=== PATIENT | female | born 1995 | race African-American/Black ===

== ENCOUNTER 2018-03-26 22:25 | Emergency (ER) | payer SELFPAY ==
[2018-03-26] MEDS ORDERED: PHENAZOPYRIDINE HCL 200 MG TABLET PO ONE (23:12)
[2018-03-26] MEDS ORDERED: HYDROCODONE/ACETAMINOPHEN 5-325 MG TABLET PO ONE (23:12)
--- NOTE | 2018-03-26 23:17 | ER Document Report ---
ED General - General Chief Complaint: Low Back Pain Stated Complaint: VOMITING/FEVER Time Seen by Provider: 03/26/18 23:02 Mode of Arrival: Ambulatory Information source: Patient Notes: 22-year-old female present presents with complaints of dysuria, low back pain and chills. Patient reports that approximately 2-3 weeks ago she was treated for trichomonas, gonorrhea, chlamydia and yeast infection at the [facility]. Patient reports that the symptoms started approximately 2 days after her treatment for the last 2 days. Patient reports that she was seen for this at the [facility] approximately 1 week ago and was started on Macrobid 100 mg p.o. twice daily however patient states that she could not afford to get the prescription filled until earlier today. Patient reports that she has taken 1 dose of the medication however patient thought that she should come and get her urine rechecked before continuing taking the medication. Patient reports no significant past medical history other than the sexually transmitted infections. Patient reports past surgical history of C- section 2. Patient denies any kidney infections or kidney stones. TRAVEL OUTSIDE OF THE [place] IN LAST 30 DAYS: No - Related Data Allergies/Adverse Reactions: No Known Allergies Allergy (Unverified 12/17/13 23:19) Past Medical History - General Information source: Patient - Social History Smoking Status: Never Smoker Frequency of alcohol use: None Drug Abuse: None Family History: Reviewed & Not Pertinent - Medical History Medical History: Negative Past Surgical History: Reports: Hx Section - x2 - Immunizations Immunizations up to date: Yes Hx Diphtheria, Pertussis, Tetanus Vaccination: Yes - 09/27/13 Review of Systems - Review of Systems Constitutional: Chills EENT: No symptoms reported Cardiovascular: No symptoms reported Respiratory: No symptoms reported Gastrointestinal: No symptoms reported Genitourinary: Burning, Dysuria Female Genitourinary: No symptoms reported Musculoskeletal: Back pain Skin: No symptoms reported Hematologic/Lymphatic: No symptoms reported Neurological/Psychological: No symptoms reported Physical Exam - Vital signs Vitals: Temp Pulse Resp BP Pulse Ox 99.0 F 92 18 123/65 97 03/26/18 22:36 03/26/18 22:36 03/26/18 22:36 03/26/18 22:36 03/26/18 22:36 - Notes Notes: PHYSICAL EXAMINATION: GENERAL: Well-appearing, well-nourished and in no acute distress. HEAD: Atraumatic, normocephalic. EYES: Pupils equal round and reactive to light, extraocular movements intact, conjunctiva are normal. ENT: Nares patent, oropharynx clear without exudates. Moist mucous membranes. NECK: Normal range of motion, supple without lymphadenopathy LUNGS: Breath sounds clear to auscultation bilaterally and equal. No wheezes rales or rhonchi. HEART: Regular rate and rhythm without murmurs ABDOMEN: Soft, nontender, nondistended abdomen. No guarding, no rebound. No masses appreciated. Female : No CVA tenderness. Musculoskeletal: Normal range of motion, no pitting or edema. No cyanosis. Low back pain on palpation. NEUROLOGICAL: Cranial nerves grossly intact. Normal speech, normal gait. Normal sensory, motor exams PSYCH: Normal mood, normal affect. SKIN: Warm, Dry, normal turgor, no rashes or lesions noted. Course - Re-evaluation Re-evalutation: Otherwise healthy appearing 22-year-old female presenting with complaints of dysuria, low back pain and chills. Patient does report that she was diagnosed with a urinary tract infection approximately 1 week ago however she did not get her prescription filled until today. Patient has no CVA tenderness, vital signs are stable and patient does not appear to be toxic. No history of kidney stones. Will recheck patient's urine and treat for pain with plan to discharge home on antibiotics. Urinalysis is negative for nitrites however reveals large leukocytes and greater than 182 white blood cells. Will treat patient with IM Rocephin while here in the emergency department and will have patient continue her Macrobid that was previously prescribed. Patient was also be given Pyridium. Patient will be following up with the health department and [place] for a follow-up next week. Patient understands ED return precautions. - Vital Signs Vital signs: Temp Pulse Resp BP Pulse Ox 98.6 F 83 16 106/64 97 03/27/18 00:33 03/27/18 00:33 03/27/18 00:33 03/27/18 00:33 03/27/18 00:33 - Laboratory Laboratory results interpreted by me: 03/26/18 23:21 Urine Protein 100 H Urine Ketones 20 H Urine Blood LARGE H Ur Leukocyte Esterase LARGE H Discharge - Discharge Clinical Impression: Urinary tract infection Condition: Stable Disposition: HOME, SELF-CARE Additional Instructions: Urinary Tract Infection Your evaluation indicates that you have a urinary tract infection. This is due to germs growing in the bladder. This is a common problem. This infection usually responds quickly to antibiotics. Your antibiotic should be taken exactly as prescribed. Drink plenty of fluids -- three to four quarts a day. Occasionally, a bladder anesthetic will be prescribed to help stop the feeling of urgency until the antibiotic has a chance to clear the infection. This may cause your urine to be dark orange. Certain urine infections require a culture. If the doctor obtained a culture, the results will be back in two days. You should call to see if a change in treatment is needed. A repeat urinalysis after you finish treatment is often recommended. The physician will let you know if further testing is required. Call the doctor if you develop fever, chills, flank pain, inability to urinate, or blood in the urine. Please take the antibiotic, Macrobid, that the health department prescribed to you. You have also been given a dose of Rocephin in the emergency department. The Pyridium that I gave you in the emergency your urine orange, do not be alarmed if this happens. Please finish all of the antibiotics regardless if your symptoms resolve or not. Please go to the health department and in the next 7-10 days to have the urine rechecked. Please return to the emergency department if you develop worsening pain, pain in your kidney area, fevers, vomiting or any other symptom that is concerning to you. Prescriptions: Phenazopyridine HCl [Pyridium 100 Mg Tablet] 100 mg PO Q6 PRN #6 tablet PRN Reason: For Pain Referrals: STACEY THOMAS MD [ACTIVE STAFF] - Follow up as needed
[2018-03-26 23:37] LABS: APPEARANCE,URINE CLOUDY; BILIRUBIN,URINE NEGATIVE (NEGATIVE); COLOR,URINE YELLOW; GLUCOSE, URINE NEGATIVE (NEGATIVE); KETONES,URINE 20 mg/dL (NEGATIVE); LEUKOCYTE ESTERASE,URINE LARGE (NEGATIVE); NITRITE,URINE NEGATIVE (NEGATIVE); PROTEIN,URINE 100 mg/dL (NEGATIVE); URINE SPECIFIC GRAVITY 1.014; UROBILINOGEN,URINE NEGATIVE mg/dL (<2.0)
[2018-03-26] MEDS ORDERED: CEFTRIAXONE INJ 1000 MG VIAL IM ONE (23:50)
[2018-03-26] MEDS ORDERED: HYDROCODONE/ACETAMINOPHEN 5-325 MG (6 TAB/ER DISP) PO PRN (23:50)
[2018-03-26] MEDS ORDERED: LIDOCAINE 1% INJ-PF (10 MG/ML) 30 ML SDV INJ ONE (23:50)
[2018-03-27 00:56] VITALS: BP 106/64
== END 2018-03-27 00:35 | disposition home or self-care (01) ==
LOC: ER 22:25
DX: N39.0 Urinary tract infection, site not specified (principal); M54.5 Low back pain; R11.10 Vomiting, unspecified; R50.9 Fever, unspecified
CPT/HCPCS: 99283; 96372; 87086; 81001; J3490 ×2; J0696

== ENCOUNTER 2018-09-09 13:31 | Emergency (ER) | payer MEDICAID ==
[2018-09-09 13:38] VITALS: BP 122/62
--- NOTE | 2018-09-09 14:06 | ER Document Report ---
ED GI/ - General Chief Complaint: Vag Bleeding, +preg <12wks Stated Complaint: VAGINAL BLEEDING Time Seen by Provider: 09/09/18 14:00 Mode of Arrival: Ambulatory Information source: Patient Notes: Chief complaint: Vaginal bleeding History of complain:( obtained from----patient) 23 years old female , 6 weeks presents today with vaginal bleeding on and off since this morning. Denies any abdominal pain or cramps. Denies any weakness. Denies any constitutional symptoms. Onset: This morning Duration: Few hours Severity: Mild to moderate Quality: Vaginal bleeding Context: Exacerbating factor and relieving factors: Not applicable REVIEW OF SYSTEMS: CONSTITUTIONAL : Denies fever, chills, or sweats. Denies recent illness. EENT: Denies eye, ear, throat, or mouth pain or symptoms. Denies nasal or sinus congestion or discharge. Denies throat, tongue, or mouth swelling or difficulty swallowing. CARDIOVASCULAR: Denies chest pain. Denies palpitations or racing or irregular heart beat. Denies ankle edema. RESPIRATORY: Denies cough, cold, or chest congestion. Denies shortness of breath, difficulty breathing, or wheezing. GASTROINTESTINAL: Denies distention. Denies nausea, vomiting, or diarrhea. Denies blood in vomitus, stools, or per rectum. Denies black, tarry stools. Denies constipation. GENITOURINARY: Denies difficulty urinating, painful urination, burning, frequency, blood in urine, or discharge. FEMALE GENITOURINARY: Denies vaginal bleeding, heavy or abnormal periods, irregular periods. Denies vaginal discharge or odor. MUSCULOSKELETAL: Denies back or neck pain or stiffness. Denies joint pain or swelling. SKIN: Denies rash, lesions or sores. HEMATOLOGIC : Denies easy bruising or bleeding. LYMPHATIC: Denies swollen, enlarged glands. NEUROLOGICAL: Denies confusion or altered mental status. Denies passing out or loss of consciousness. Denies dizziness or lightheadedness. Denies headache. Denies weakness or paralysis or loss of use of either side. Denies problems with gait or speech. Denies sensory loss, numbness, or tingling. Denies seizures. PSYCHIATRIC: Denies anxiety or stress. Denies depression, suicidal ideation, or homicidal ideation. ALL OTHER SYSTEMS REVIEWED AND NEGATIVE. PHYSICAL EXAMINATION: GENERAL: Well-appearing, well-nourished and in no acute distress. HEAD: Atraumatic, normocephalic. EYES: Pupils equal round and reactive to light, extraocular movements intact, conjunctiva are normal. ENT: Nares patent, oropharynx clear without exudates. Moist mucous membranes. NECK: Normal range of motion, supple without lymphadenopathy LUNGS: Breath sounds clear to auscultation bilaterally and equal. No wheezes rales or rhonchi. HEART: Regular rate and rhythm without murmurs ABDOMEN: Soft, nontender, nondistended abdomen. No guarding, no rebound. No masses appreciated. Examination of genitals-deferred Musculoskeletal: Normal range of motion, no pitting or edema. No cyanosis. NEUROLOGICAL: Cranial nerves grossly intact. Normal speech, normal gait. Normal sensory, motor exams PSYCH: Normal mood, normal affect. SKIN: Warm, Dry, normal turgor, no rashes or lesions noted. Dictation was performed using [employer] voice recognition software TRAVEL OUTSIDE OF THE [place] IN LAST 30 DAYS: No - HPI Notes: 09/10/18 09:14 Dictated - Related Data Allergies/Adverse Reactions: No Known Allergies Allergy (Verified 09/09/18 13:32) Past Medical History - General Last Menstrual Period: 07/29/2018 - Social History Smoking Status: Current Every Day Smoker Chew tobacco use (# tins/day): No Frequency of alcohol use: None Drug Abuse: None Lives with: Family Family History: Reviewed & Not Pertinent Patient has suicidal ideation: No Patient has homicidal ideation: No Renal/ Medical History: Denies: Hx Peritoneal Dialysis Past Surgical History: Reports: Hx Section - x2 - Immunizations Immunizations up to date: Yes Hx Diphtheria, Pertussis, Tetanus Vaccination: Yes - 09/27/13 Review of Systems - Review of Systems Notes: Dictated Physical Exam - Vital signs Vitals: Temp Pulse Resp BP Pulse Ox 98.1 F 82 14 122/62 100 09/09/18 13:36 09/09/18 13:36 09/09/18 13:36 09/09/18 13:36 09/09/18 13:36 - Notes Notes: Dictated Course - Vital Signs Vital signs: Temp Pulse Resp BP Pulse Ox 98.1 F 82 14 122/62 100 09/09/18 13:36 09/09/18 13:36 09/09/18 13:36 09/09/18 13:36 09/09/18 13:36 - Laboratory Result Diagrams: 09/09/18 14:32 Laboratory results interpreted by me: 09/09/18 14:32 Beta HCG, Quant 983.75 H - Diagnostic Test Radiology reviewed: Reports reviewed - Ultrasound of the pelvis was done which indicates 6 weeks intrauterine sac, could not identify pole. Discharge - Discharge Clinical Impression: Threatened in first trimester Condition: Fair Disposition: HOME, SELF-CARE Instructions: Threatened Miscarriage ([facility])
[2018-09-09 14:51] LABS: ABSOLUTE EOSINOPHILS # (AUTO) 0.1 10^3/uL (0.0-0.6); ABSOLUTE LYMPHOCYTES (AUTO) 2.6 10^3/uL (0.5-4.7); ABSOLUTE MONOCYTES (AUTO) 0.5 10^3/uL (0.1-1.4); ABSOLUTE NEUT (AUTO) 5.1 10^3/uL (1.7-8.2); BASOPHILS % (AUTO) 0.3 % (0-2); EOSINOPHILS % (AUTO) 1.2 % (0-6); LYMPHOCYTES % (AUTO) 31.4 % (13-45); MEAN CORPUSCULAR HEMOGLOBIN 31.5 pg (27.0-33.4); MEAN CORPUSCULAR HGB CONC 34.3 g/dL (32.0-36.0); MEAN CORPUSCULAR VOLUME 92 fl (80-97); MONOCYTES % (AUTO) 5.6 % (3-13); PLATELET COUNT 257 10^3/uL (150-450); RED BLOOD COUNT 4.14 10^6/uL (3.72-5.28); RED CELL DISTRIBUTION WIDTH 12.9 % (11.5-14.0); SEGMENTED NEUTROPHILS % (AUTO) 61.5 % (42-78); TOTAL CELLS COUNTED % (AUTO) 100 %; WHITE BLOOD COUNT 8.3 10^3/uL (4.0-10.5)
--- NOTE | 2018-09-09 16:26 | RADIOLOGY REPORT (SQ) ---
EXAM DESCRIPTION: U/S 1TRIMESTER/1GEST W/DOPPLER COMPLETED DATE/TIME: 09/09/2018 4:04 pm REASON FOR STUDY: COMPARISON: None. TECHNIQUE: Transvaginal static and realtime grayscale images acquired of the pelvis. Additional geovanni cted spectral and color Doppler images recorded. All images stored on PACs. bHCG: Not available. CLINICAL DATES: LMP 07/29/2018. 6 weeks 0 days. LIMITATIONS: None. FINDINGS: FETUS: Single Living intrauterine . ULTRASOUND EGA: 5 weeks 2 days by gestational sac size. The gestational sac is rounded and there is some fluid within it. ULTRASOUND JUAN: 05/10/2019 EFW: Not applicable less than 20 weeks. CRL: Not seen. FHR: Not seen. Beats per minute. SURVEY: Too early to assess. AMNIOTIC FLUID: Adequate amount. PLACENTA: Not yet developed due to early gestation. SUBCHORIONIC BLEED: No SIZE OF BLEED: Not applicable. UTERUS: No masses. No anomalies. CERVICAL LENGTH: Not applicable. Greater than 20 weeks. Need transvaginal study if indicated. Close d. RIGHT ADNEXA: Normal ovary with normal vascular flow. 2.5 x 3.3 x 1.6 cm. No adnexal free fluid. No adnexal masses. LEFT ADNEXA: Normal ovary with normal vascular flow. 2.9 x 1.6 x 1.8 cm. No adnexal free fluid. No adnexal masses. FREE FLUID: None. OTHER: No other significant finding. IMPRESSION: There appears to be an intrauterine gestational sac measuring 6 mm suggesting an gestati on of 5 weeks 2 days. A pole is not seen. Of course no heart motion is seen. Follow-up as clinically indicated. Trimester of : First - 0 to 13 weeks. TECHNICAL DOCUMENTATION: JOB ID: [id number] [employer]- All Rights Reserved rev-02/27 Reading location - IP/workstation name: [email or web address]
== END 2018-09-09 16:43 | disposition home or self-care (01) ==
LOC: ER 13:31
DX: O20.0 Threatened abortion (principal); O99.331 Smoking (tobacco) complicating pregnancy, first trimester; Z3A.01 Less than 8 weeks gestation of pregnancy
CPT/HCPCS: 36415; 76801; 84702; 85025; 93976; 99284

== ENCOUNTER 2018-09-11 15:00 | Emergency (ER) | payer MEDICAID ==
--- NOTE | 2018-09-11 16:30 | ER Document Report ---
ED GI/ - General Chief Complaint: Vag Bleeding, +preg <12wks Stated Complaint: VAGINAL BLEEDING Time Seen by Provider: 09/11/18 16:27 Mode of Arrival: Ambulatory Information source: Patient Notes: Chief complaint: Vaginal bleeding History of complain:( obtained from----patient) 23 years old female presents today with vaginal bleeding. She was seen here 2 days ago and had a ultrasound done. Showed 5 weeks and 2 days intrauterine gestation. But she is continuously bleeding therefore present today via taxi. Onset: As above Duration: As above Severity: Mild to moderate Quality: Mild Context: Exacerbating factor and relieving factors: REVIEW OF SYSTEMS: CONSTITUTIONAL : Denies fever, chills, or sweats. Denies recent illness. EENT: Denies eye, ear, throat, or mouth pain or symptoms. Denies nasal or sinus congestion or discharge. Denies throat, tongue, or mouth swelling or difficulty swallowing. CARDIOVASCULAR: Denies chest pain. Denies palpitations or racing or irregular heart beat. Denies ankle edema. RESPIRATORY: Denies cough, cold, or chest congestion. Denies shortness of breath, difficulty breathing, or wheezing. GASTROINTESTINAL: Denies distention. Denies nausea, vomiting, or diarrhea. Denies blood in vomitus, stools, or per rectum. Denies black, tarry stools. Denies constipation. GENITOURINARY: Denies difficulty urinating, painful urination, burning, frequency, blood in urine, or discharge. FEMALE GENITOURINARY: Denies vaginal bleeding, heavy or abnormal periods, irregular periods. Denies vaginal discharge or odor. MUSCULOSKELETAL: Denies back or neck pain or stiffness. Denies joint pain or swelling. SKIN: Denies rash, lesions or sores. HEMATOLOGIC : Denies easy bruising or bleeding. LYMPHATIC: Denies swollen, enlarged glands. NEUROLOGICAL: Denies confusion or altered mental status. Denies passing out or loss of consciousness. Denies dizziness or lightheadedness. Denies headache. Denies weakness or paralysis or loss of use of either side. Denies problems with gait or speech. Denies sensory loss, numbness, or tingling. Denies seizures. PSYCHIATRIC: Denies anxiety or stress. Denies depression, suicidal ideation, or homicidal ideation. ALL OTHER SYSTEMS REVIEWED AND NEGATIVE. PHYSICAL EXAMINATION: GENERAL: Well-appearing, well-nourished and in no acute distress. HEAD: Atraumatic, normocephalic. EYES: Pupils equal round and reactive to light, extraocular movements intact, conjunctiva are normal. ENT: Nares patent, oropharynx clear without exudates. Moist mucous membranes. NECK: Normal range of motion, supple without lymphadenopathy LUNGS: Breath sounds clear to auscultation bilaterally and equal. No wheezes rales or rhonchi. HEART: Regular rate and rhythm without murmurs ABDOMEN: Soft, nontender, nondistended abdomen. No guarding, no rebound. No masses appreciated. Examination of genitals-deferred Musculoskeletal: Normal range of motion, no pitting or edema. No cyanosis. NEUROLOGICAL: Cranial nerves grossly intact. Normal speech, normal gait. Normal sensory, motor exams PSYCH: Normal mood, normal affect. SKIN: Warm, Dry, normal turgor, no rashes or lesions noted. Dictation was performed using [employer] voice recognition software TRAVEL OUTSIDE OF THE [place] IN LAST 30 DAYS: No - HPI Notes: 09/11/18 16:30 Dictated - Related Data Allergies/Adverse Reactions: No Known Allergies Allergy (Verified 09/11/18 15:01) Past Medical History - Social History Smoking Status: Current Every Day Smoker Cigarette use (# per day): No Chew tobacco use (# tins/day): No Frequency of alcohol use: None Lives with: Family Family History: Reviewed & Not Pertinent Renal/ Medical History: Denies: Hx Peritoneal Dialysis Past Surgical History: Reports: Hx Section - x2 - Immunizations Immunizations up to date: Yes Hx Diphtheria, Pertussis, Tetanus Vaccination: Yes - 09/27/13 Review of Systems - Review of Systems Notes: Dictated Physical Exam - Vital signs Vitals: Temp Pulse Resp BP Pulse Ox 99.2 F 94 16 110/56 L 100 09/11/18 15:04 09/11/18 15:04 09/11/18 15:04 09/11/18 15:04 09/11/18 15:04 - Notes Notes: Dictated Course - Vital Signs Vital signs: Temp Pulse Resp BP Pulse Ox 99.2 F 94 16 110/56 L 100 09/11/18 15:04 09/11/18 15:04 09/11/18 15:04 09/11/18 15:04 09/11/18 15:04 - Laboratory Laboratory results interpreted by me: 09/11/18 09/11/18 16:38 16:38 Beta HCG, Quant 211.26 H Urine Blood LARGE H Urine Urobilinogen 2.0 H Ur Leukocyte Esterase LARGE H Discharge - Discharge Clinical Impression: Miscarriage Condition: Fair Disposition: HOME, SELF-CARE Instructions: Miscarriage ([facility])
[2018-09-11 17:20] LABS: APPEARANCE,URINE CLOUDY; BILIRUBIN,URINE NEGATIVE (NEGATIVE); COLOR,URINE YELLOW; GLUCOSE, URINE NEGATIVE (NEGATIVE); KETONES,URINE NEGATIVE (NEGATIVE); LEUKOCYTE ESTERASE,URINE LARGE (NEGATIVE); NITRITE,URINE NEGATIVE (NEGATIVE); PROTEIN,URINE NEGATIVE (NEGATIVE)
[2018-09-11 18:44] VITALS: BP 134/72
== END 2018-09-11 18:38 | disposition home or self-care (01) ==
LOC: ER 15:00
DX: O03.9 Complete or unspecified spontaneous abortion without complication (principal); O99.331 Smoking (tobacco) complicating pregnancy, first trimester
CPT/HCPCS: 36415; 81001; 84702; 99284

== ENCOUNTER 2018-09-29 13:24 | Emergency (ER) | payer MEDICAID ==
--- NOTE | 2018-09-29 14:13 | ER Document Report ---
ED GI/ - General Chief Complaint: Urinary Problem Stated Complaint: BACK PAIN Time Seen by Provider: 09/29/18 14:01 Mode of Arrival: Ambulatory Information source: Patient Notes: Patient is a 23-year-old female comes emergency room today with complaint of dysuria and back pain. Patient informs me that she had a miscarriage 2 weeks ago she was approximately 5 weeks into the when she self aborted. She has not followed up with [facility] since then. She denies any other discomforts denies any discharge denies any fever. She states that she has had this off and on dysuria since the miscarriage occurred. She denies any other medical problems. TRAVEL OUTSIDE OF THE [place] IN LAST 30 DAYS: No - HPI Patient complains to provider of: Dysuria. No: Vaginal bleeding, Vaginal discharge, Vaginal pain Onset: Other - 2 weeks ago Timing/Duration: Gradual, Intermittent Quality of pain: Burning, Cramping, Pressure Severity at maximum: Moderate Severity in ED: Moderate Pain Level: 3 Location: Suprapubic. No: Pelvis, Vaginal Vaginal bleeding (Compared to normal period): None LMP: 2 months ago Sexual history: Active Associated symptoms: Radiates to back. denies: Painful intercourse Exacerbated by: Denies Relieved by: Denies Similar symptoms previously: Yes Recently seen / treated by doctor: Yes - Related Data Allergies/Adverse Reactions: No Known Allergies Allergy (Verified 09/11/18 15:01) Past Medical History - General Information source: Patient - Social History Smoking Status: Current Every Day Smoker Cigarette use (# per day): Yes - Half-pack a day Chew tobacco use (# tins/day): No Smoking Education Provided: Yes Frequency of alcohol use: Rare Drug Abuse: None Family History: Reviewed & Not Pertinent Renal/ Medical History: Denies: Hx Peritoneal Dialysis Past Surgical History: Reports: Hx Section - x2 - Immunizations Immunizations up to date: Yes Hx Diphtheria, Pertussis, Tetanus Vaccination: Yes - 09/27/13 Review of Systems - Review of Systems Constitutional: No symptoms reported EENT: No symptoms reported Cardiovascular: No symptoms reported Respiratory: No symptoms reported Gastrointestinal: No symptoms reported Genitourinary: See HPI, Burning, Dysuria, Pain, Urgency. denies: Discharge, Frequency, Flank pain, Hematuria, Retention Female Genitourinary: No symptoms reported Musculoskeletal: No symptoms reported Skin: No symptoms reported Hematologic/Lymphatic: No symptoms reported Neurological/Psychological: No symptoms reported -: Yes All other systems reviewed and negative Physical Exam - Vital signs Vitals: Temp Pulse Resp BP Pulse Ox 98.7 F 94 15 124/65 100 09/29/18 13:29 09/29/18 13:29 09/29/18 13:29 09/29/18 13:29 09/29/18 13:29 Interpretation: Normal - Notes Notes: PHYSICAL EXAMINATION: GENERAL: Well-appearing, well-nourished and in no acute distress. HEAD: Atraumatic, normocephalic. NECK: Normal range of motion, supple without lymphadenopathy LUNGS: Breath sounds clear to auscultation bilaterally and equal. No wheezes rales or rhonchi. HEART: Regular rate and rhythm without murmurs ABDOMEN: Soft, nontender, nondistended abdomen. No guarding, no rebound. No masses appreciated. There is some mild tenderness suprapubic lead to palpation. Female : deferred Musculoskeletal: Normal range of motion, no pitting or edema. No cyanosis. NEUROLOGICAL: Normal speech, normal gait. Normal sensory, motor exams PSYCH: Normal mood, normal affect. SKIN: Warm, Dry, normal turgor, no rashes or lesions noted. Course - Re-evaluation Re-evalutation: 09/29/18 15:02 Patient's course of stay in the ER was uneventful. She did have a urinary tract infection with nitrite positive. I have offered to do a pelvic and she does not want one at this time. We will treat her UTI she will follow-up as needed. - Vital Signs Vital signs: Temp Pulse Resp BP Pulse Ox 98.7 F 94 15 124/65 100 09/29/18 13:29 09/29/18 13:29 09/29/18 13:29 09/29/18 13:29 09/29/18 13:29 - Laboratory Laboratory results interpreted by me: 09/29/18 14:10 Urine Nitrite POSITIVE H Urine Urobilinogen 4.0 H Ur Leukocyte Esterase SMALL H Discharge - Discharge Clinical Impression: Urinary tract infection Qualifiers: Urinary tract infection type: acute cystitis Hematuria presence: without hematuria Qualified Code(s): N30.00 - Acute cystitis without hematuria Condition: Stable Disposition: HOME, SELF-CARE Instructions: Cephalexin ([facility]), Urinary Anesthetic Agent ([facility]), Urinary Tract Infection ([facility]) Additional Instructions: URINARY TRACT INFECTION: Your evaluation indicates that you have a urinary tract infection. This is due to germs growing in the bladder. This is a common problem. This infection usually responds quickly to antibiotics. Your antibiotic should be taken exactly as prescribed. Drink plenty of fluids -- three to four quarts a day. Occasionally, a bladder anesthetic will be prescribed to help stop the feeling of urgency until the antibiotic has a chance to clear the infection. This may cause your urine to be dark orange. Certain urine infections require a culture. If the doctor obtained a culture, the results will be back in two days. You should call to see if a change in treatment is needed. A repeat urinalysis after you finish treatment is often recommended. The physician will let you know if further testing is required. Call the doctor if you develop fever, chills, flank pain, inability to urinate, or blood in the urine. ANTIBIOTIC THERAPY: You have been given an antibiotic prescription. It's important that you take all the medication, unless instructed otherwise by your physician. Failure to complete the entire course can result in relapse of your condition. Common side effects of antibiotics include nausea, intestinal cramping, or diarrhea. Women may develop vaginal yeast infections, and babies can get yeast (thrush) in the mouth following the use of antibiotics. Contact your physician if you develop significant side effects from this medication. Allergy to this antibiotic can result in hives, wheezing, faintness, or itching. If symptoms of allergy occur, stop the medication and call the doctor. CEPHALEXIN: The antibiotic you've been prescribed is a member of the cephalosporin class. This type of antibiotic covers a wide variety of infections, including those of the skin, lungs, and urinary tract. It's useful for staph infections. This antibiotic is slightly similar to the penicillin family. In rare cases , a person who is allergic to penicillin will also be allergic to this medication. If you have had a severe allergic reaction to penicillin, and have not taken this antibiotic since that time, notify your doctor. Antibiotics which cover many germs ("broad spectrum" antibiotics) are more likely to cause diarrhea or "yeast" infections. Women prone to vaginal yeast problems may suffer an attack after taking this antibiotic. In infants, oral thrush (white spots "stuck" on the cheek) or yeast diaper rash may result. See your doctor if these problems occur. Call at once if you develop itching, hives , shortness of breath, or lightheadedness. AMOXICILLIN: Amoxicillin is a member of the penicillin family. It covers the germs likely to cause ear, bronchial, and urinary infections better than plain penicillin. Amoxicillin can be taken without regard to meals. Nausea after taking the medication is rare, but can occur. Diarrhea can occur, particularly in small children. Vaginal yeast infections and oral thrush in infants are also common. Contact your physician if these problems occur. Allergy to penicillins is common. If you have had an allergic reaction to any drug of the penicillin family, you should never take any other penicillin. Notify your doctor at once if you develop hives, itching, swelling, faintness, or shortness of breath. Less serious side effects can include nausea or diarrhea. URINARY ANESTHETIC AGENT: You have been given a medication (Pyridium) for urinary tract discomfort. This medicine numbs the lining of the bladder and urethra, resulting in less pain, burning, and urgency. You may take it as needed, according to instructions. When the symptoms resolve, you can stop this medication (be sure to continue any other medications the doctor has given you). This medicine turns the urine a dark orange. It may stain underwear. Occasionally, it can cause nausea. Return for evaluation if there are any unexpected effects, such as itching, hives, or shortness of breath. FOLLOW-UP CARE: If you have been referred to a physician for follow-up care, call the physician s office for an appointment as you were instructed or within the next two days. If you experience worsening or a significant change in your symptoms, notify the physician immediately or return to the Emergency Department at any time for re-evaluation. Prescriptions: Fluconazole [Diflucan] 150 mg PO ONCE PRN #1 tablet PRN Reason: Nitrofurantoin/Nitrofuran Mac [Macrobid 100 mg Capsule] 1 tab PO BID #20 capsule Phenazopyridine HCl [Pyridium 200 mg Tablet] 200 mg PO TID PRN #6 tablet PRN Reason: Forms: Return to Work [facility] [NO LOCAL MD] - Follow up as needed
[2018-09-29 14:54] LABS: APPEARANCE,URINE CLOUDY; BILIRUBIN,URINE NEGATIVE (NEGATIVE); COLOR,URINE YELLOW; GLUCOSE, URINE NEGATIVE (NEGATIVE); KETONES,URINE NEGATIVE (NEGATIVE); LEUKOCYTE ESTERASE,URINE SMALL (NEGATIVE); NITRITE,URINE POSITIVE (NEGATIVE); PROTEIN,URINE NEGATIVE (NEGATIVE); URINE SPECIFIC GRAVITY 1.016
[2018-09-29 15:30] VITALS: BP 121/56
== END 2018-09-29 15:28 | disposition home or self-care (01) ==
LOC: ER 13:24
DX: N30.00 Acute cystitis without hematuria (principal); M54.9 Dorsalgia, unspecified; F17.210 Nicotine dependence, cigarettes, uncomplicated
CPT/HCPCS: 81001; 81025; 87086; 87088; 87186; 99283

== ENCOUNTER → 2018-10-20 | Outpatient (CLI) | payer MEDICAID ==
[2018-10-20 14:59] LABS: CHLAM PCR NOT DETECTED (NOT DETECT); GON PCR NOT DETECTED (NOT DETECT)
== END ==
LOC: OD 11:42
PROVIDERS: ATTEND Nurse Practitioner Acute Care
DX: R30.0 Dysuria (principal)
CPT/HCPCS: 87086; 87088; 87186; 87491; 87591

== ENCOUNTER 2018-11-22 16:57 | Emergency (ER) | payer MEDICAID ==
[2018-11-22 17:07] VITALS: BP 127/77
--- NOTE | 2018-11-22 17:43 | ER Document Report ---
HPI - HPI Time Seen by Provider: 11/22/18 17:27 Pain Level: 4 Notes: Patient is a 23-year-old female who presents to the ED complaining of nasal congestion/discharge, dry nonproductive cough, fever, body ache 6-7 days 3.1 direct bili 2.1. Patient states that she is still eating and drinking without difficulties, but does have a decreased p.o. intake. She is still urinating normally having normal bowel movements. Patient has been using some [id number] meds for symptoms. She denies any significant past medical history including cardiopulmonary history and immunocompromised conditions. Denies any current headache, neck pain, sore throat, chest pain, palpitations, syncope, shortness of breath, wheeze, dyspnea, abdominal pain, nausea/vomiting/diarrhea, urinary retention, dysuria, hematuria, or rash. - ROS Systems Reviewed and Negative: Yes All other systems reviewed and negative - REPRODUCTIVE Reproductive: DENIES: : Past Medical History - Social History Smoking Status: Never Smoker Family History: Reviewed & Not Pertinent Renal/ Medical History: Denies: Hx Peritoneal Dialysis Past Surgical History: Reports: Hx Section - x2 - Immunizations Immunizations up to date: Yes Hx Diphtheria, Pertussis, Tetanus Vaccination: Yes - 09/27/13 Vertical Provider Document - CONSTITUTIONAL Agree With Documented VS: Yes Notes: PHYSICAL EXAMINATION: GENERAL: Well-appearing, well-nourished and in no acute distress. A&Ox4. Answers questions appropriately. Moves comfortably w/o notable distress HEAD: Atraumatic, normocephalic. EYES: Pupils equal round and reactive to light, extraocular movements intact, sclera anicteric, conjunctiva are normal. ENT: EAC clear b/l. TM's intact b/l without erythema, fluid, or perforation. Nares patent and with clear discharge. oropharynx no erythema without exudates. No tonsilar hypertrophy without erythema or exudate. No palatine shift. Uvula midline. No tongue protrusion. No drooling, hoarseness, or airway compromise. Moist mucous membranes. No sinus tenderness. NECK: Normal range of motion, supple without lymphadenopathy. No rigidity/meningismus. LUNGS: Breath sounds clear to auscultation bilaterally and equal. No wheezes rales or rhonchi. No retractions HEART: Regular rate and rhythm without murmurs, rubs, gallops. ABDOMEN: Soft, nontender, nondistended abdomen. No guarding, no rebound. Normal bowel sounds present. No CVA tenderness bilaterally. NEUROLOGICAL: Normal speech, normal gait. PSYCH: Normal mood, normal affect. SKIN: Warm, Dry, normal turgor, no rashes or lesions noted. - INFECTION CONTROL TRAVEL OUTSIDE OF THE [place] IN LAST 30 DAYS: No Course - Re-evaluation Re-evalutation: 11/22/18 17:40 Patient is an afebrile, well-hydrated, 23-year-old female who presents to the ED with acute URI, suspect viral/influenza. Vitals are acceptable. PE is otherwise unremarkable. No labs or imaging warranted at this time based on H&P. Patient has no significant cardiopulmonary or immunocompromised medical conditions. Patient's lungs are clear to auscultation bilaterally without tachycardia, hypoxia, or tachypnea. Patient is tolerating p.o. without any difficulties. Patient beyond treatment window with Tamiflu. Low suspicion for any meningitis, sepsis, peritonsillar/pharyngeal abscess, respiratory compromise, severe dehydration, or other emergent systemic condition at this time. Patient is aware this condition can change from initial presentation and she needs to monitor symptoms closely. Conservative measures otherwise for symptoms. Recheck with your PCM in 3-5 days. Return to the ED with any worsening/concerning symptoms otherwise as reviewed in discharge. Patient is in agreement. - Vital Signs Vital signs: Temp Pulse Resp BP Pulse Ox 99.3 F 103 H 16 127/77 H 100 11/22/18 17:06 11/22/18 17:06 11/22/18 17:06 11/22/18 17:06 11/22/18 17:06 Discharge - Discharge Clinical Impression: Acute URI Condition: Stable Disposition: HOME, SELF-CARE Instructions: Upper Respiratory Illness ([facility]) Additional Instructions: Maintain adequate fluid intake Take meds as directed tylenol/ibuprofen as needed over the counter cold medication as needed for symptoms Humidified air may help Wash your hands regularly Wear a mask when coughing F/u: with your PCM in 3-5 days for a recheck Return to the ED with any fever, worsening pain, chest pain, palpitations, syncope, worsening FUENTES, neck pain/stiffness, shortness of breath, wheezing, drooling, trouble swallowing/breathing, abdominal pain, n/v/d, rash, or worsening/concerning symptoms otherwise. Prescriptions: Benzonatate [Tessalon Perle 100 mg Capsule] 100 mg PO Q8HP PRN #15 cap PRN Reason: Forms: Elevated Blood Pressure Referrals: TIFFANIE NUNEZ NP [Primary Care Provider] - Follow up as needed
== END 2018-11-22 17:57 | disposition home or self-care (01) ==
LOC: ER 16:57
DX: J06.9 Acute upper respiratory infection, unspecified (principal); R09.81 Nasal congestion; R05 Cough
CPT/HCPCS: 99283

== ENCOUNTER 2019-01-04 12:20 | Emergency (ER) | payer MEDICAID ==
--- NOTE | 2019-01-04 13:41 | ER Document Report ---
HPI - HPI Time Seen by Provider: 01/04/19 12:54 Pain Level: 4 Context: Patient is a 23-year-old female who presents emergency department with a chief complaint of back pain that is on her left side that shoots down her buttock down to her left leg. She has had her symptoms for the past week. She has complaints of itchiness in her vaginal area that has been going on for the past week also she denies any sexual intercourse, but is 8 weeks . She states that she saw her OB for her first visit and everything was normal. She took some [id number] pain medicine, but cannot recall what kind. - CONSTITUTIONAL Constitutional: DENIES: Fever, Chills - EENT EENT: DENIES: Sore Throat - NEURO Neurology: DENIES: Headache - CARDIOVASCULAR Cardiovascular: DENIES: Chest pain - RESPIRATORY Respiratory: DENIES: Coughing - GASTROINTESTINAL Gastrointestinal: DENIES: Abdominal Pain - URINARY Urinary: DENIES: Dysuria, Urgency, Frequency - REPRODUCTIVE LMP: 8 Weeks Reproductive: REPORTS: :, Abnormal bleeding / discharge - Vaginal discharge, white - DERM Skin Color: Normal Skin Problems: None Past Medical History - Social History Smoking Status: Unknown if Ever Smoked Family History: Reviewed & Not Pertinent Renal/ Medical History: Denies: Hx Peritoneal Dialysis Past Surgical History: Reports: Hx Section - x2 - Immunizations Immunizations up to date: Yes Hx Diphtheria, Pertussis, Tetanus Vaccination: Yes - 09/27/13 Vertical Provider Document - CONSTITUTIONAL Agree With Documented VS: Yes Exam Limitations: No Limitations General Appearance: No Apparent Distress - INFECTION CONTROL TRAVEL OUTSIDE OF THE [place] IN LAST 30 DAYS: No - HEENT HEENT: Atraumatic, Normocephalic - NECK Neck: Normal Inspection - RESPIRATORY Respiratory: Breath Sounds Normal, No Respiratory Distress - CARDIOVASCULAR Cardiovascular: Regular Rate, Regular Rhythm Pulses: Normal: Radial - GI/ABDOMEN Gastrointestinal: Abdomen Soft - Noticeably - MUSCULOSKELETAL/EXTREMETIES Musculoskeletal/Extremeties: FROM - NEURO Level of Consciousness: Awake, Alert, Appropriate Motor/Sensory: No Motor Deficit, No Sensory Deficit - DERM Integumentary: Warm, Dry Course - Re-evaluation Re-evalutation: 01/04/19 15:29 Patient's urinalysis is unremarkable at this time. Awaiting gonorrhea and Chlamydia results. She does have a small amount of bacteria noted. 01/04/19 15:54 Wet mount was performed with MARILU Gonzales at bedside. Will await results. 01/04/19 16:48 Patient's gonorrhea patient has 3+ epithelial cells and 3+ bacteria is on wet mount, along with yeast. She also has she will be treated with Flagyl and a dose of Diflucan here in the emergency department. She will follow-up with her DIRECTOR GRAPHICS or primary care provider. Verbal discharge instructions were given to the patient. They verbalized understanding. They are stable for discharge. - Vital Signs Vital signs: Temp Pulse Resp BP Pulse Ox 98.4 F 93 18 126/61 H 99 01/04/19 12:38 01/04/19 12:38 01/04/19 12:38 01/04/19 12:38 01/04/19 12:38 Discharge - Discharge Clinical Impression: Bacterial vaginosis Sciatic nerve pain Qualifiers: Laterality: left Qualified Code(s): M54.32 - Sciatica, left side Condition: Stable Disposition: HOME, SELF-CARE Additional Instructions: You were seen today in the emergency department for low back pain and urinary tract infection symptoms. You have a yeast infection and bacterial vaginosis. You have been treated for yeast infection here in the emergency department. You have also been given antibiotics for your bacterial vaginosis. Take all your an tibiotics as prescribed. Follow-up with your primary care or OB within this week. If you have abdominal pain, worsening symptoms, or any symptoms that are worrisome to you, please return to the emergency department. Prescriptions: Lidocaine [Lidoderm 5% (700 mg) Transdermal Patch] 1 patch TP DAILY #7 adh..patch Metronidazole [Flagyl 500 mg Tablet] 500 mg PO Q6H #28 tablet Referrals: TIFFANIE NUNEZ, MICHAEL [Primary Care Provider] - Follow up as needed
[2019-01-04 15:13] LABS: AMORPHOUS SEDIMENT,URINE TRACE /HPF; APPEARANCE,URINE TURBID; BILIRUBIN,URINE NEGATIVE (NEGATIVE); COLOR,URINE YELLOW; GLUCOSE, URINE NEGATIVE (NEGATIVE); KETONES,URINE NEGATIVE (NEGATIVE); LEUKOCYTE ESTERASE,URINE NEGATIVE (NEGATIVE); NITRITE,URINE NEGATIVE (NEGATIVE); PROTEIN,URINE NEGATIVE (NEGATIVE); URINE SPECIFIC GRAVITY 1.018
[2019-01-04 15:27] VITALS: BP 108/46
[2019-01-04] MEDS ORDERED: ACETAMINOPHEN 325 MG TABLET PO ONE (15:50)
[2019-01-04] MEDS ORDERED: LIDOCAINE 5% (700 MG) TRANSDERMAL ADH..PATCH TP ONE (15:51)
[2019-01-04 16:28] LABS: CHLAM PCR NOT DETECTED (NOT DETECT); GON PCR NOT DETECTED (NOT DETECT)
[2019-01-04 16:28] LABS: T.VAGINALIS (WET MOUNT) NO TRICHOMONAS SEEN; YEAST (WET MOUNT) YEAST SEEN
[2019-01-04 16:29] LABS: BACTERIA (WET MOUNT) 3+ BACTERIA SEEN; EPITHELIALS (WET MOUNT) 3+ EPITHELIALS SEEN; RBCS (WET MOUNT) NO RBCS SEEN; WBCS (WET MOUNT) 3+ WBCS SEEN
[2019-01-04] MEDS ORDERED: FLUCONAZOLE 100 MG TABLET PO ONE (16:38)
== END 2019-01-04 16:49 | disposition home or self-care (01) ==
LOC: ER 12:20
DX: O23.591 Infection of other part of genital tract in pregnancy, first trimester (principal); B96.89 Other specified bacterial agents as the cause of diseases classified elsewhere; O26.891 Other specified pregnancy related conditions, first trimester; M54.32 Sciatica, left side; M54.9 Dorsalgia, unspecified; M79.605 Pain in left leg; L29.2 Pruritus vulvae; Z3A.08 8 weeks gestation of pregnancy; Z79.899 Other long term (current) drug therapy
CPT/HCPCS: 99283; 87210; 81001; 87491; 87591; J3490 ×3

== ENCOUNTER 2019-11-18 11:12 | Outpatient (CLI) | payer MEDICAID | END 2019-11-18 12:17 | disposition home or self-care (01) | LOC: LC 11:12 | PROVIDERS: ATTEND Obstetrics & Gynecology | PROC: 4A1HXCZ Monitoring of Products of Conception, Cardiac Rate, External Approach (ICD-10-PCS; principal; 2019-11-18) | DX: O24.419 Gestational diabetes mellitus in pregnancy, unspecified control (principal); Z3A.34 34 weeks gestation of pregnancy | CPT/HCPCS: 59025 ==

== ENCOUNTER 2019-11-25 09:54 | Outpatient (CLI) | payer MEDICAID ==
--- NOTE | 2019-11-25 10:30 | Non Stress Test Report ---
Non Stress Test Datetime Report Generated by CPN: 11/25/2019 10:29 DEMOGRAPHIC EGA NST: 35.1 EGA NST: 34.1 VITAL SIGNS Temperature - NST: 98.6 Pulse - NST: 108 RESP - NST: 18 NBPSYS NST: 108 NBPDIA NST: 58 MONITORING Monitor Explained: Monitor Explained; Test Explained; Patient Verbalized Understanding Monitor Explained: Monitor Explained; Test Explained; Patient Verbalized Understanding Monitor Explained: Monitor Explained; Test Explained; Patient Verbalized Understanding Time on Monitor: 11/25/2019 10:01 Time on Monitor: 11/18/2019 11:25 Time on Monitor: 11/18/2019 11:25 Time off Monitor: 11/25/2019 10:21 Time off Monitor: 11/18/2019 12:12 NST Duration: 20 NST Duration: 47 NST INTERVENTIONS NST Interventions: PO Hydration; Reposition Patient NST Interventions: PO Hydration; Reposition Patient NST Interventions: PO Hydration; Reposition Patient Physician Notified NST: Wade pate CNLoretta Physician Notified NST: DR BURGOS REVIEWED STRIP BABY A: [id number] BABY A Movement : Present Movement : Present Contraction Frequency : 0 Contraction Frequency : OCC FHR Baseline : 130 FHR Baseline : 135 Accelerations : 15X15 Accelerations : 15X15 Decelerations : None Decelerations : None Variability : Moderate 6-25bpm Variability : Moderate 6-25bpm NST Review: Meets Criteria for Reactive NST NST Review: Meets Criteria for Reactive NST NST Review and Verified By : Loretta Moya RN NST Results: Reactive NST Results: Reactive NST REPORT Report Trigger: Send Report
== END 2019-11-25 10:27 | disposition home or self-care (01) ==
LOC: LC 09:54
PROVIDERS: ATTEND Obstetrics & Gynecology
PROC: 4A1HXCZ Monitoring of Products of Conception, Cardiac Rate, External Approach (ICD-10-PCS; principal; 2019-11-25)
DX: Z34.93 Encounter for supervision of normal pregnancy, unspecified, third trimester (principal)
CPT/HCPCS: 59025

== ENCOUNTER 2019-12-01 10:53 | Outpatient (CLI) | payer MEDICAID ==
--- NOTE | 2019-12-01 11:29 | Non Stress Test Report ---
Non Stress Test Datetime Report Generated by CPN: 12/01/2019 11:28 DEMOGRAPHIC EGA NST: 36.0 MONITORING Monitor Explained: Monitor Explained; Test Explained; Patient Verbalized Understanding Time on Monitor: 12/01/2019 11:02 Time off Monitor: 12/01/2019 11:23 NST Duration: 21 NST INTERVENTIONS NST Interventions: PO Hydration Physician Notified NST: c. sierra cnm BABY A: [id number] BABY A Movement : Present Contraction Frequency : 1 FHR Baseline : 130 Accelerations : 15X15 Decelerations : None Variability : Moderate 6-25bpm NST Review: Meets Criteria for Reactive NST NST Review and Verified By : Edel Sharma RN NST Results: Reactive NST REPORT Report Trigger: Send Report
== END 2019-12-01 11:27 | disposition home or self-care (01) ==
LOC: LC 10:53
PROVIDERS: ATTEND Obstetrics & Gynecology
PROC: 4A1HXCZ Monitoring of Products of Conception, Cardiac Rate, External Approach (ICD-10-PCS; principal; 2019-12-01)
DX: Z34.93 Encounter for supervision of normal pregnancy, unspecified, third trimester (principal); Z3A.36 36 weeks gestation of pregnancy

== ENCOUNTER 2019-12-15 10:52 | Outpatient (CLI) | payer MEDICAID ==
--- NOTE | 2019-12-15 12:05 | Non Stress Test Report ---
Non Stress Test Datetime Report Generated by CPN: 12/15/2019 12:04 DEMOGRAPHIC EGA NST: 38.0 INDICATION Indication for Study (NST) Other: repeat from office VITAL SIGNS Temperature - NST: 98.2 Pulse - NST: 95 RESP - NST: 14 NBPSYS NST: 109 NBPDIA NST: 57 MONITORING Monitor Explained: Monitor Explained; Test Explained; Patient Verbalized Understanding Time on Monitor: 12/15/2019 11:02 Time off Monitor: 12/15/2019 11:50 NST Duration: 48 NST INTERVENTIONS NST Interventions: PO Hydration; Reposition Patient Physician Notified NST: C Caputo CNM BABY A: [id number] BABY A Movement : Present Contraction Frequency : x2 FHR Baseline : 130 Accelerations : 15X15 Decelerations : None Variability : Moderate 6-25bpm NST Review: Meets Criteria for Reactive NST NST Review and Verified By : Chaka Capps RN NST Results: Reactive NST REPORT Report Trigger: Send Report
== END 2019-12-15 11:53 | disposition home or self-care (01) ==
LOC: LC 10:52
PROVIDERS: ATTEND Obstetrics & Gynecology
PROC: 4A1HXCZ Monitoring of Products of Conception, Cardiac Rate, External Approach (ICD-10-PCS; principal; 2019-12-15)
DX: O24.419 Gestational diabetes mellitus in pregnancy, unspecified control (principal); Z3A.38 38 weeks gestation of pregnancy
CPT/HCPCS: 59025

== ENCOUNTER 2019-12-17 12:24 | Inpatient (IN) | payer MEDICAID ==
[2019-12-20 11:39] LABS: APPEARANCE,URINE SLIGHTLY-CLOUDY; BILIRUBIN,URINE NEGATIVE (NEGATIVE); COLOR,URINE YELLOW; GLUCOSE, URINE 50 mg/dL (NEGATIVE); KETONES,URINE NEGATIVE (NEGATIVE); LEUKOCYTE ESTERASE,URINE NEGATIVE (NEGATIVE); NITRITE,URINE NEGATIVE (NEGATIVE); PROTEIN,URINE NEGATIVE (NEGATIVE); URINE SPECIFIC GRAVITY 1.017
[2019-12-20 11:46] LABS: ABSOLUTE LYMPHOCYTES (AUTO) 1.1 10^3/uL (0.5-4.7); ABSOLUTE MONOCYTES (AUTO) 0.6 10^3/uL (0.1-1.4); ABSOLUTE NEUT (AUTO) 4.1 10^3/uL (1.7-8.2); BASOPHILS % (AUTO) 0.3 % (0-2); EOSINOPHILS % (AUTO) 0.6 % (0-6); HEMATOCRIT 31.1 % (36.0-47.0); HEMOGLOBIN 10.8 g/dL (12.0-15.5); LYMPHOCYTES % (AUTO) 19.4 % (13-45); MEAN CORPUSCULAR HEMOGLOBIN 31.3 pg (27.0-33.4); MEAN CORPUSCULAR HGB CONC 34.7 g/dL (32.0-36.0); MEAN CORPUSCULAR VOLUME 90 fl (80-97); MONOCYTES % (AUTO) 10.1 % (3-13); PLATELET COUNT 164 10^3/uL (150-450); RED BLOOD COUNT 3.45 10^6/uL (3.72-5.28); RED CELL DISTRIBUTION WIDTH 14.2 % (11.5-14.0); SEGMENTED NEUTROPHILS % (AUTO) 69.6 % (42-78); TOTAL CELLS COUNTED % (AUTO) 100 %; WHITE BLOOD COUNT 5.8 10^3/uL (4.0-10.5)
[2019-12-20 12:00] LABS: URINE AMPHETAMINES SCREEN NEGATIVE; URINE BENZODIAZEPINES SCREEN NEGATIVE; URINE COCAINE SCREEN NEGATIVE; URINE MARIJUANA (THC) SCREEN NEGATIVE; URINE METHADONE SCREEN NEGATIVE; URINE PHENCYCLIDINE SCREEN NEGATIVE
[2019-12-20 13:16] LABS: URINE BARBITURATES SCREEN UNCONFIRMED POSITIVE
[2019-12-20] MEDS ORDERED: RINGERS SOLUTION,LACTATED 1,500 ML IV ONE (16:00)
[2019-12-22] MEDS ORDERED: CEFAZOLIN SODIUM 2 GM in DEXTROSE 5%-WATER 100 ML IV PRN (05:00)
[2019-12-22] MEDS ORDERED: RINGERS SOLUTION,LACTATED 1,500 ML IV PRN (05:00)
[2019-12-22] MEDS ORDERED: LIDOCAINE 0.5% INJ-PF (5 MG/ML) 50 ML SDV SUBCUT PRN (05:00)
[2019-12-22] MEDS ORDERED: LACTATED RINGERS 1000 ML IV PRN (05:00)
[2019-12-22] MEDS ORDERED: MIDAZOLAM 2 MG/2 ML INJ ONE (07:10)
[2019-12-22] MEDS ORDERED: OXYTOCIN 10 UNIT/ML VIAL ONE ×2 (07:10→08:18)
[2019-12-22] MEDS ORDERED: PROPOFOL INJ 200 MG/20 ML VIAL IV ONE (07:10)
[2019-12-22] MEDS ORDERED: FENTANYL CITRATE INJ/PF 100 MCG/2 ML AMPUL ONE (07:10)
[2019-12-22] MEDS ORDERED: EPHEDRINE SULFATE INJ 50 MG/1 ML AMPULE ONE (07:10)
[2019-12-22] MEDS ORDERED: PROMETHAZINE HCL INJ 25 MG/1 ML VIAL IV PRN ×3 (07:51→09:02)
[2019-12-22] MEDS ORDERED: OXYCODONE-ACETAMINOPHEN 5-325 MG TABLET PO PRN ×3 (07:51→09:02)
[2019-12-22] MEDS ORDERED: MEPERIDINE HCL/PF INJ 25 MG/1 ML DISP.SYRIN IV PRN (07:51)
[2019-12-22] MEDS ORDERED: DIPHENHYDRAMINE HCL 50 MG/ML VIAL IV PRN (07:51)
[2019-12-22] MEDS ORDERED: FENTANYL CITRATE INJ/PF 100 MCG/2 ML AMPUL IV PRN ×3 (07:51)
[2019-12-22] MEDS ORDERED: MISOPROSTOL 0.2 MG TABLET ONE (08:20)
[2019-12-22] MEDS ORDERED: OXYTOCIN/NORMAL SALINE 20 UNIT/1,000 ML RTUINJ IV PRN (09:02)
[2019-12-22] MEDS ORDERED: MEASLES,MUMPS&RUBELLA VACC/PF 0.5 ML VIAL SUBCUT PRN (09:02)
[2019-12-22] MEDS ORDERED: DIPH/PERTUSS(ACELL)/TETANUS VAC/PF 0.5 ML SYR (>=10YO) IM PRN (09:02)
[2019-12-22] MEDS ORDERED: ACETAMINOPHEN 1,000 MG/100 ML RTUPB IV PRN (09:02)
[2019-12-22] MEDS ORDERED: ACETAMINOPHEN 325 MG TABLET PO PRN (09:02)
[2019-12-22] MEDS ORDERED: SIMETHICONE 80 MG TAB.CHEW PO PRN (09:02)
[2019-12-22] MEDS ORDERED: RINGERS SOLUTION,LACTATED 1,000 ML IV PRN (09:02)
[2019-12-22] MEDS ORDERED: HYDROMORPHONE HCL INJ/PF 2 MG/ML AMPULE IV PRN (09:02)
--- NOTE | 2019-12-22 09:17 | Brief Operative Note ---
BRIEF OPERATIVE REPORT DATE OF SURGERY: 12/22/19 TIME OF SURGERY: 08:05 PREOPERATIVE DIAGNOSIS: PUND at 39+0ega, H/o section x 2, A1GDM, GBS positive, Hypertrophic scar POSTOPERATIVE DIAGNOSIS: RICHARD - delivered SURGEON: SELIN BERNAL FINDINGS: 2 prior pfannensteil incisions with hypertrophic scar, significant adhesions of rectus muscles to anterion uterus, VMI delivered at 0813, Apgars 8/9, weight 6#1oz (2750g), QBL 598ml, UOP 300ml (clear urine), EBL 500ml, IVF 1200ml COMPLICATIONS: uterine atony ESTIMATED BLOOD LOSS: 598ml TISSUE REMOVED OR ALTERED: placenta and cord, not sent to pathology TECHNICAL PROCEDURE: Repeat section with scar revision.
--- NOTE | 2019-12-22 09:20 | Operative Report ---
Operative Report DATE OF SURGERY: 12/22/19 PREOPERATIVE DIAGNOSIS: PUND at 39+0ega, H/o section x 2, A1GDM, GBS p ositive, Hypertrophic scar POSTOPERATIVE DIAGNOSIS: RICHARD - delivered OPERATION: Repeat section with scar revision. SURGEON: SELIN BERNAL ANESTHESIA: Spinal TISSUE REMOVED OR ALTERED: placenta and cord, not sent to pathology COMPLICATIONS: uterine atony ESTIMATED BLOOD LOSS: 500ml QUANTITATIVE BLOOD LOSS: 598 INTRAOPERATIVE FINDINGS: 2 prior pfannensteil incisions with hypertrophic scar, significant adhesions of rectus muscles to anterion uterus, VMI delivered at 0813, Apgars 8/9, weight 6#1oz (2750g), QBL 598ml, UOP 300ml (clear urine), EBL 500ml, IVF 1200ml PROCEDURE: Anesthesia provider: [Alaina Cruz CRNA, MD] Urine output: [300ml] IV fluids: [1200] Indications: [24yo at 39+0ega with history of section x 2 and desires repeat section. She declines BTL and desires DepoProvera for contraception . She has complicated by A1GDM and GBS positive. She presents for a scheduled section and not in active labor but with intermittent late decels on monitor in preoperative area. She was counseled regarding the risks, benefits, alternatives and desires to proceed wi th planned procedure.] Procedure: The patient was taken to the operating room where spinal anesthesia was obtained and found to be adequate. She was then prepped and draped in the normal sterile fashion and placed in the dorsal supine position with a leftward tilt. A Pfannenstiel skin incision was then made and carried through to the underlying layers of the fascia with the scalpel. The fascia was incised in the midline and the incision extended laterally with the Leon scissors. The superior aspect of the fascial incision was then grasped with Elvia clamps elevated and the underlying rectus muscles dissected off sharply due to dense adhesions of rectus muscles to anterior of uterus. Attention was then turned to the inferior aspect of the fascial incision which in a similar fashion was grasped, tented up with Elvia clamps, and the rectus muscles dissected off [bluntly]. The rectus muscles were then in the midline and the peritoneum at the amount identified and entered [bluntly]. The peritoneal incision was then extended superiorly and inferiorly with good visualization of the bladder. The bladder blade was inserted and the vesicouterine peritoneum identified grasped with [place] pickups and entered sharply with the Metzenbaum scissors. This incision was then extended laterally with the Metzenbaum scissors and a bladder flap created digitally. The bladder blade was then reinserted and the lower uterine segment incised in a transverse fashion with the scalpel. The uterine incision was then extended bluntly. The bladder blade was removed and the 's head was delivered from cephalic presentation atraumatically. The nose and mouth were suctioned and the cord doubly clamped and cut. And the infant was handed off to waiting pediatricians. The placenta was then delivered spontaneously and the uterus exteriorized and cleared of all clots and debris. The uterine incision was then repaired with 1- 0 Vicryl in a running locked fashion. A second layer of the same suture was used to obtain hemostasis via imbrication of the initial layer. The bladder flap was then repaired with 3-0 chromic in a running fashion. The uterus was returned to the patient's abdomen and Interceed was placed overlying the uterine incision to prevent adhesions. The gutters were cleared of all clots and debris. All operative sites were noted to be hemostatic. The fascia was reapproximated with 0 Vicryl in a running fashion from each lateral edge to the midline. The skin was closed with 3-0 Monocryl in a running subcuticular fashion with overlying Dermabond for additional dressing as well as wound closure. The patient tolerated the procedure well. Sponge lap needle and instrument counts are correct times 2. 2 g of Ancef were given prior to skin incision. The patient was taken to the recovery area awake and in stable condition. Cytotec 1000mcg per rectum was placed for uterine tone.
--- NOTE | 2019-12-22 09:20 | PDOC DELIVERY SUMMARY ---
Delivery Summary - Maternal Hx : V Hx Para: II Hx # Term Pregnancies: 2 Hx # Pregnancies: 0 Hx Total # of Abortions (Sponateous & Elective): 2 Number of Living Children: 2 JUAN: 12/29/19 Gestational Age: 39.0 Risk Factors: Previous , Gestational Diabetes, Other - intermittent late decels on monitoring upon presentation for scheduled section Ruptured Membranes: AROM Time of Rupture: 08:12 Fluids: Clear - Delivery Labor: Not In Labor Presentation: Vertex Heart Rate Monitoring: Done Pre-Operatively Uterine Contraction Monitoring: External Pattern: Late Decels - intermittent Support Person Present: Yes Location: OR : Scheduled Placenta: Within Normal Limits Number of Vessels (Cord): 3 Nuchal Cord: Yes Delivery of Placenta Date: 12/22/19 Delivery of Placenta Time: 08:13 Estimated Blood Loss: 200 Delivery Quantitative Blood Loss (QBL): 598 - Medications Type of Anesthesia:: Spinal - Intrapartum Medications Intrapartum Medications: pitocin 40units - Delivery Medications Delivery Meds: Cytotec 1000mcg Per Rectum/Vagina - Assess and Care Baby 1 Male Delivery of Date: 12/22/19 Delivery of Infant Time: 08:13 at 1 minute: 8 at 5 minutes: 9 Preprinted Number On Band: [id number] Infant Skin to Skin: No To Nursery At: 08:20 Mode of Transport: Bassinet Infant Delivery Weight: 2,750 Infant Delivery Length: 19 in - Delivery Personnel Saw Man: BARTOLOME ELLIS RN: JORGE MURPHY RN: PHILL ORTEGA MD: SELIN BERNAL
[2019-12-22] MEDS: FENTANYL CITRATE INJ/PF 100 MCG/2 ML AMPUL ONE ×2 (09:45→10:03)
[2019-12-22] MEDS ORDERED: OXYTOCIN/NORMAL SALINE 20 UNIT/1,000 ML RTUINJ ONE (10:25)
[2019-12-22] MEDS: KETOROLAC TROMETHAMINE INJ/PF 30 MG/1 ML SDV IV SCH ×2 (11:17→18:20)
[2019-12-22] MEDS: PRENATAL VITAMIN W DHA CAPSULE PO SCH (11:18)
[2019-12-22] MEDS: DOCUSATE SODIUM 100 MG CAPSULE PO SCH ×2 (11:18→18:08)
[2019-12-22] MEDS: OXYCODONE-ACETAMINOPHEN 5-325 MG TABLET PO PRN (13:29)
[2019-12-22] MEDS ORDERED: ONDANSETRON HCL INJ/PF 4 MG/2 ML SDV ONE (13:50)
[2019-12-22] MEDS ORDERED: DEXAMETHASONE SOD PHOSPHATE INJ 4 MG/1 ML VIAL ONE (13:50)
[2019-12-22] MEDS ORDERED: KETOROLAC TROMETHAMINE INJ/PF 30 MG/1 ML SDV IV SCH (14:00)
[2019-12-23] MEDS: OXYCODONE-ACETAMINOPHEN 5-325 MG TABLET PO PRN ×2 (00:37→21:01)
[2019-12-23] MEDS: KETOROLAC TROMETHAMINE INJ/PF 30 MG/1 ML SDV IV SCH (02:44)
[2019-12-23 03:51] LABS: ABSOLUTE MONOCYTES (AUTO) 0.7 10^3/uL (0.1-1.4); ABSOLUTE NEUT (AUTO) 6.5 10^3/uL (1.7-8.2); BASOPHILS % (AUTO) 0.1 % (0-2); EOSINOPHILS % (AUTO) 0.1 % (0-6); HEMATOCRIT 25.7 % (36.0-47.0); HEMOGLOBIN 9.1 g/dL (12.0-15.5); LYMPHOCYTES % (AUTO) 12.7 % (13-45); MEAN CORPUSCULAR HEMOGLOBIN 31.5 pg (27.0-33.4); MEAN CORPUSCULAR HGB CONC 35.5 g/dL (32.0-36.0); MEAN CORPUSCULAR VOLUME 89 fl (80-97); MONOCYTES % (AUTO) 8.9 % (3-13); PLATELET COUNT 148 10^3/uL (150-450); RED CELL DISTRIBUTION WIDTH 13.9 % (11.5-14.0); SEGMENTED NEUTROPHILS % (AUTO) 78.2 % (42-78); TOTAL CELLS COUNTED % (AUTO) 100 %; WHITE BLOOD COUNT 8.3 10^3/uL (4.0-10.5)
[2019-12-23] MEDS ORDERED: AMPICILLIN SOD INJ 2 GM VIAL IV PRN (04:00)
[2019-12-23] MEDS ORDERED: GENTAMICIN SULFATE INJ 80 MG/2 ML VIAL IV ONE (04:00)
[2019-12-23 04:08] LABS: ALBUMIN 2.6 g/dL (3.5-5.0); ALKALINE PHOSPHATASE 168 U/L (38-126); ANION GAP 6 (5-19); ASPARTATE AMINO TRANSFERASE 33 U/L (14-36); BILIRUBIN,DIRECT 0.2 mg/dL (0.0-0.4); BILIRUBIN,TOTAL 0.2 mg/dL (0.2-1.3); BLOOD UREA NITROGEN 7 mg/dL (7-20); CALCIUM 8.4 mg/dL (8.4-10.2); CARBON DIOXIDE 24 mmol/L (22-30); CHLORIDE 102 mmol/L (98-107); GLUCOSE 105 mg/dL (75-110); POTASSIUM 3.6 mmol/L (3.6-5.0); TOTAL PROTEIN 5.7 g/dL (6.3-8.2)
[2019-12-23] MEDS ORDERED: GENTAMICIN SULFATE 140 MG in DEXTROSE 5%-WATER 100 ML IV ONE (04:30)
[2019-12-23] MEDS ORDERED: AMPICILLIN SODIUM 2 GM in NORMAL SALINE 100 ML IV SCH (06:00)
[2019-12-23] MEDS: CLINDAMYCIN 900 MG/D5W RTU 900 MG/50 ML RTUPB IV SCH ×3 (06:26→23:24)
[2019-12-23 07:35] LABS: HEMATOCRIT 28.8 % (36.0-47.0); HEMOGLOBIN 9.9 g/dL (12.0-15.5); MEAN CORPUSCULAR HEMOGLOBIN 31.3 pg (27.0-33.4); MEAN CORPUSCULAR HGB CONC 34.4 g/dL (32.0-36.0); MEAN CORPUSCULAR VOLUME 91 fl (80-97); PLATELET COUNT 150 10^3/uL (150-450); RED BLOOD COUNT 3.16 10^6/uL (3.72-5.28); RED CELL DISTRIBUTION WIDTH 14.2 % (11.5-14.0); WHITE BLOOD COUNT 8.4 10^3/uL (4.0-10.5)
--- NOTE | 2019-12-23 09:17 | RADIOLOGY REPORT (SQ) ---
EXAM DESCRIPTION: CHEST 2 VIEWS COMPLETED DATE/TIME: 12/23/2019 7:56 am REASON FOR STUDY: fever, s/p repeat scheduled section COMPARISON: 02/08/2011 EXAM PARAMETERS: NUMBER OF VIEWS: two views TECHNIQUE: Digital Frontal and Lateral radiographic views of the chest acquired. RADIATION DOSE: NA LIMITATIONS: none FINDINGS: LUNGS AND PLEURA: No opacities, masses or pneumothorax. No pleural effusion. MEDIASTINUM AND HILAR STRUCTURES: No masses or contour abnormalities. HEART AND VASCULAR STRUCTURES: Heart normal size. No evidence for failure. BONES: No acute findings. HARDWARE: None in the chest. OTHER: Small amount of free air under the right diaphragm consistent with recent . IMPRESSION: NO ACUTE RADIOGRAPHIC FINDING IN THE CHEST. TECHNICAL DOCUMENTATION: JOB ID: [id number] 2010 [employer]- All Rights Reserved Reading location - IP/workstation name: [email or web address]
[2019-12-23] MEDS: DOCUSATE SODIUM 100 MG CAPSULE PO SCH ×2 (09:39→17:55)
[2019-12-23] MEDS: IBUPROFEN 800 MG TABLET PO SCH ×3 (09:39→21:02)
[2019-12-23] MEDS: PRENATAL VITAMIN W DHA CAPSULE PO SCH (09:39)
--- NOTE | 2019-12-23 09:45 | PDOC PROGRESS REPORT ---
Subjective-OB Progress Note for:: 12/23/19 Subjective: Doing well per nurse, pt sleeping on rounds, snoring, family sleeping in other bed Physical Exam (OB) Vital Signs: Temp Pulse Resp BP Pulse Ox 97.8 F 79 16 91/53 L 100 12/23/19 07:45 12/23/19 07:45 12/23/19 07:45 12/23/19 07:45 12/23/19 07:45 Intake & Output 12/22/19 12/23/19 12/24/19 06:59 06:59 06:59 Intake Total 2100 Output Total 6783 Balance -4683 - PIH/Pre-Eclampsia DTR's: 1 + Clonus: Negative Headache: Absent Epigastric Pain: No Visual Changes: No - Dressing Removed: No Incision: Well Approximated Closure Type: Surgical Glue - Lochia Lochia Amount: Small 10-25 ml Lochia Color: Rubra/Red - Abdomen Description: Tender, Soft Hernia Present: No Fundal Description: Firm, Midline Fundal Height: u/u - u/2 Objective-Diagnostic Laboratory: 12/23/19 07:06 12/23/19 03:36 12/23/19 12/23/19 12/23/19 03:36 03:36 03:36 WBC 8.3 RBC 2.90 L Hgb 9.1 L Hct 25.7 L MCV 89 MCH 31.5 MCHC 35.5 RDW 13.9 Plt Count 148 L Seg Neutrophils % 78.2 H Sodium 131.8 L Potassium 3.6 Chloride 102 Carbon Dioxide 24 Anion Gap 6 BUN 7 Creatinine 0.64 Est GFR ( Amer) > 60 Glucose 105 Lactic Acid 1.2 Calcium 8.4 Total Bilirubin 0.2 AST 33 Alkaline Phosphatase 168 H Total Protein 5.7 L Albumin 2.6 L 12/23/19 07:06 WBC 8.4 RBC 3.16 L Hgb 9.9 L Hct 28.8 L MCV 91 MCH 31.3 MCHC 34.4 RDW 14.2 H Plt Count 150 Seg Neutrophils % Sodium Potassium Chloride Carbon Dioxide Anion Gap BUN Creatinine Est GFR ( Amer) Glucose Lactic Acid Calcium Total Bilirubin AST Alkaline Phosphatase Total Protein Albumin Assessment and Plan(PN) - Assessment and Plan (1) Status post repeat low transverse section Is this a current diagnosis for this admission?: Yes (2) History of delivery Is this a current diagnosis for this admission?: Yes - Time Spent with Patient Time with patient: Less than 15 minutes Medications reviewed and adjusted accordingly: Yes - Disposition Anticipated Discharge: Home Within: within 24 hours
[2019-12-23] MEDS: AMPICILLIN SODIUM 2 GM in NORMAL SALINE 100 ML IV SCH ×3 (09:48→22:31)
[2019-12-23] MEDS ORDERED: GENTAMICIN SULFATE INJ 80 MG/2 ML VIAL IV SCH (10:00)
[2019-12-23 10:12] LABS: A TYPE INFLUENZA AG NEGATIVE (NEGATIVE); B INFLUENZA AG POSITIVE (NEGATIVE)
[2019-12-23] MEDS: OSELTAMIVIR PHOSPHATE 75 MG CAPSULE PO SCH ×2 (12:06→22:59)
[2019-12-23] MEDS: GENTAMICIN SULFATE 100 MG in DEXTROSE 5%-WATER 100 ML IV SCH ×2 (12:07→21:03)
[2019-12-24] MEDS: AMPICILLIN SODIUM 2 GM in NORMAL SALINE 100 ML IV SCH ×2 (02:13→09:03)
[2019-12-24] MEDS: IBUPROFEN 800 MG TABLET PO SCH ×2 (02:13→09:02)
[2019-12-24] MEDS: GENTAMICIN SULFATE 100 MG in DEXTROSE 5%-WATER 100 ML IV SCH ×2 (03:27→11:00)
[2019-12-24] MEDS: CLINDAMYCIN 900 MG/D5W RTU 900 MG/50 ML RTUPB IV SCH (05:03)
[2019-12-24] MEDS: DOCUSATE SODIUM 100 MG CAPSULE PO SCH (09:02)
[2019-12-24] MEDS: PRENATAL VITAMIN W DHA CAPSULE PO SCH (09:02)
[2019-12-24] MEDS: OSELTAMIVIR PHOSPHATE 75 MG CAPSULE PO SCH (10:53)
[2019-12-24 11:06] VITALS: BP 112/62
--- NOTE | 2019-12-24 11:08 | PDOC DISCHARGE SUMMARY ---
Impression - Admit/DC Date/PCP Admission Date/Primary Care Provider: 12/22/19 05:01 SELIN BERNAL MD Discharge Date: 12/24/19 - PP Day #2, s/p , Pt tested +Influenza type B this admission, denies fever, chills., malaise, Pt on Tamiflu. Had 24 hours of triple abx. B+, Rubella Immune, bottlefeeding - Discharge Diagnosis (1) Influenza B Is this a current diagnosis for this admission?: Yes (2) History of delivery Is this a current diagnosis for this admission?: Yes (3) Status post repeat low transverse section Is this a current diagnosis for this admission?: Yes - Additional Information Resuscitation Status: Full Code Discharge Diet: As Tolerated, Regular Discharge Activity: Activity As Tolerated, No Driving, No Lifting Over 10 Pounds, Pelvic Rest, Slowly Increase Activity Referrals: [facility] [Provider Group] Prescriptions: Ibuprofen [Motrin 800 mg Tablet] 800 mg PO Q8H #60 tablet Oxycodone HCl/Acetaminophen [Percocet 5-325 mg Tablet] 1 tab PO Q4HP PRN #30 tablet PRN Reason: Pain Scale Of 4 Oseltamivir Phosphate [Tamiflu 75 mg Capsule] 75 mg PO Q12 14 Days #28 capsule Home Medications: No.137/Iron/Folic Acd [ Vitamin Tablet] 1 tab PO DAILY 12/17/13 Ibuprofen [Motrin 800 mg Tablet] 800 mg PO Q8H #60 tablet 12/24/19 Oseltamivir Phosphate [Tamiflu 75 mg Capsule] 75 mg PO Q12 14 Days #28 capsule 12/24/19 Oxycodone HCl/Acetaminophen [Percocet 5-325 mg Tablet] 1 tab PO Q4HP PRN #30 tablet 12/24/19 HPI Reason(s) for Admission: Onset of Labor Procedures: Ultrasound Intrapartum Procedure(s): : Low Cervical, Transverse Hospital Course Hospital Course: Had a fever over 24 hours ago, +Influenza B. Placed on Tamiflu. Negative Blood cultures. afebrile x 24 hours Results Laboratory Results: WBC 8.4 10^3/uL (4.0-10.5) 12/23/19 07:06 RBC 3.16 10^6/uL (3.72-5.28) L 12/23/19 07:06 Hgb 9.9 g/dL (12.0-15.5) L 12/23/19 07:06 Hct 28.8 % (36.0-47.0) L 12/23/19 07:06 MCV 91 fl (80-97) 12/23/19 07:06 MCH 31.3 pg (27.0-33.4) 12/23/19 07:06 MCHC 34.4 g/dL (32.0-36.0) 12/23/19 07:06 RDW 14.2 % (11.5-14.0) H 12/23/19 07:06 Plt Count 150 10^3/uL (150-450) 12/23/19 07:06 Lymph % (Auto) 12.7 % (13-45) L 12/23/19 03:36 Kings % (Auto) 8.9 % (3-13) 12/23/19 03:36 Eos % (Auto) 0.1 % (0-6) 12/23/19 03:36 Baso % (Auto) 0.1 % (0-2) 12/23/19 03:36 Absolute Neuts (auto) 6.5 10^3/uL (1.7-8.2) 12/23/19 03:36 Absolute Lymphs (auto) 1.0 10^3/uL (0.5-4.7) 12/23/19 03:36 Absolute Monos (auto) 0.7 10^3/uL (0.1-1.4) 12/23/19 03:36 Absolute Eos (auto) 0.0 10^3/uL (0.0-0.6) 12/23/19 03:36 Absolute Basos (auto) 0.0 10^3/uL (0.0-0.2) 12/23/19 03:36 Seg Neutrophils % 78.2 % (42-78) H 12/23/19 03:36 Sodium 131.8 mmol/L (137-145) L 12/23/19 03:36 Potassium 3.6 mmol/L (3.6-5.0) 12/23/19 03:36 Chloride 102 mmol/L (98-107) 12/23/19 03:36 Carbon Dioxide 24 mmol/L (22-30) 12/23/19 03:36 Anion Gap 6 (5-19) 12/23/19 03:36 BUN 7 mg/dL (7-20) 12/23/19 03:36 Creatinine 0.64 mg/dL (0.52-1.25) 12/23/19 03:36 Est GFR ( Amer) > 60 (>60) 12/23/19 03:36 Est GFR (MDRD) Non-Af > 60 (>60) 12/23/19 03:36 Glucose 105 mg/dL (75-110) 12/23/19 03:36 POC Glucose 87 mg/dL (70-110) 12/22/19 05:19 Lactic Acid 1.2 mmol/L (0.7-2.1) 12/23/19 03:36 Calcium 8.4 mg/dL (8.4-10.2) 12/23/19 03:36 Total Bilirubin 0.2 mg/dL (0.2-1.3) 12/23/19 03:36 Direct Bilirubin 0.2 mg/dL (0.0-0.4) 12/23/19 03:36 Neonat Total Bilirubin Not Reportable 12/23/19 03:36 Neonat Direct Bilirubin Not Reportable 12/23/19 03:36 Neonat Indirect Bili Not Reportable 12/23/19 03:36 AST 33 U/L (14-36) 12/23/19 03:36 ALT 15 U/L (<35) 12/23/19 03:36 Alkaline Phosphatase 168 U/L (38-126) H 12/23/19 03:36 Total Protein 5.7 g/dL (6.3-8.2) L 12/23/19 03:36 Albumin 2.6 g/dL (3.5-5.0) L 12/23/19 03:36 Urine Color YELLOW 12/20/19 10:39 Urine Appearance SLIGHTLY-CLOUDY 12/20/19 10:39 Urine pH 6.0 (5.0-9.0) 12/20/19 10:39 Ur Specific [place] 1.017 12/20/19 10:39 Urine Protein NEGATIVE mg/dL (NEGATIVE) 12/20/19 10:39 Urine Glucose (UA) 50 mg/dL (NEGATIVE) H 12/20/19 10:39 Urine Ketones NEGATIVE mg/dL (NEGATIVE) 12/20/19 10:39 Urine Blood NEGATIVE (NEGATIVE) 12/20/19 10:39 Urine Nitrite NEGATIVE (NEGATIVE) 12/20/19 10:39 Urine Bilirubin NEGATIVE (NEGATIVE) 12/20/19 10:39 Urine Urobilinogen 2.0 mg/dL (<2.0) H 12/20/19 10:39 Ur Leukocyte Esterase NEGATIVE (NEGATIVE) 12/20/19 10:39 Urine WBC (Auto) 2 /HPF 12/20/19 10:39 Urine RBC (Auto) 0 /HPF 12/20/19 10:39 Squamous Epi Cells Auto 6 /HPF 12/20/19 10:39 Urine Mucus (Auto) RARE /LPF 12/20/19 10:39 Urine Ascorbic Acid NEGATIVE (NEGATIVE) 12/20/19 10:39 Urine Opiates Screen NEGATIVE 12/20/19 10:39 Urine Methadone Screen NEGATIVE 12/20/19 10:39 Ur Barbiturates Screen UNCONFIRMED POSITIVE 12/20/19 10:39 Ur Phencyclidine Scrn NEGATIVE 12/20/19 10:39 Ur Amphetamines Screen NEGATIVE 12/20/19 10:39 U Benzodiazepines Scrn NEGATIVE 12/20/19 10:39 Urine Cocaine Screen NEGATIVE 12/20/19 10:39 U Marijuana (THC) Screen NEGATIVE 12/20/19 10:39 Influenza A (Rapid) NEGATIVE (NEGATIVE) 12/23/19 09:49 Influenza B (Rapid) POSITIVE (NEGATIVE) 12/23/19 09:49 Blood Type B POSITIVE 12/20/19 10:50 Antibody Screen NEGATIVE 12/20/19 10:50 Impressions: Chest X-Ray 12/23/19 03:25 IMPRESSION: NO ACUTE RADIOGRAPHIC FINDING IN THE CHEST. Plan Health Concerns: d/c home, Remain on the Tamiflu x 14 days. F/up with [facility] 7-10 days as long as no fever or Flu symptoms. Time Spent: Less than 30 Minutes
== END 2019-12-24 14:25 | disposition home or self-care (01) | DRG 788 ==
LOC: 2S 12-22 05:01
PROVIDERS: ADMIT Student in an Organized Health Care Education/Training Program; ATTEND Student in an Organized Health Care Education/Training Program
PROC: 0HB7XZZ Excision of Abdomen Skin, External Approach (ICD-10-PCS; 2019-12-22)
PROC: 10D00Z1 Extraction of Products of Conception, Low, Open Approach (ICD-10-PCS; principal; 2019-12-22 07:45)
DX: O34.211 Maternal care for low transverse scar from previous cesarean delivery (principal); O99.52 Diseases of the respiratory system complicating childbirth; J11.1 Influenza due to unidentified influenza virus with other respiratory manifestations; O24.420 Gestational diabetes mellitus in childbirth, diet controlled; O99.824 Streptococcus B carrier state complicating childbirth; O99.89 Other specified diseases and conditions complicating pregnancy, childbirth and the puerperium; O76 Abnormality in fetal heart rate and rhythm complicating labor and delivery; N73.6 Female pelvic peritoneal adhesions (postinfective); N85.8 Other specified noninflammatory disorders of uterus; Z3A.39 39 weeks gestation of pregnancy; Z37.0 Single live birth
CPT/HCPCS: 1961; 36415; 59025; 71046; 80053; 80307; 81001; 82962; 83605; 85025; 85027; 86850; 86900; 86901; 87040; 87086; 87804; 94799; C1765; J0131; J0290; J0690; J1100; J1170; J1580; J1885; J2250; J2405; J2590; J2704; J3010; J3490; J7050; J7060

== ENCOUNTER → 2020-04-21 | Outpatient (CLI) | payer MEDICAID ==
--- NOTE | 2020-04-21 14:08 | ER [facility] ASSESSMENT REPORT ---
Intake - In the Last 14 days Have you traveled outside [place]?: No Have you been in close contact with someone CONFIRMED: Yes Worked in Healthcare?: No - Symptoms Subjective Fever([place] feverish): No Chills: No Muscule Aches: No Runny Nose: No Sore Throat: No Cough (New or worsening chronic cough): No Shortness of breath: No Nausea or Vomiting: No Headache: No Abdominal Pain: No Diarrhea(3 or more loose stools in last 24 hours): No - Do you have any of the following Chronic lung disease: Asthma or emphysema or COPD: No Cystic Fibrosis: No Diabetes: No High Blood Pressure: No Cardiovascular Disease: No Chronic Kidney Disease: No Chronic Liver Disease: No Chronic blood disorder like Sickle Cell Disease: No Weak immune system due to disease or medication: No Neurologic condition that limits movement: No Developmental delay - Moderate to Severe: No Recent (within past 2 weeks) or current : No Morbid Obesity (>100 pounds over ideal weight): No - Objective Temperature: 98.9 F Pulse Rate: 87 Respiratory Rate: 20 Blood Pressure: 133/81 O2 Sat by Pulse Oximetry: 98 Objective: Given above, testing performed: If Testing Performed: Test Specimen Type Sent to General - General Information source: Patient Notes: Patient presents to the [facility] for screening for the coronavirus. Patient had recent exposure at work to 2 coworkers who tested positive. Patient denies any symptoms at this time. Patient is a smoker. Patient denies any underlying chronic medical conditions. - Related Data Allergies/Adverse Reactions: No Known Allergies Allergy (Verified 12/01/19 11:13) Past Medical History - General Information source: Patient - Social History Smoking Status: Current Every Day Smoker Family History: Reviewed & Not Pertinent - Medical History Medical History: Negative Renal/ Medical History: Denies: Hx Peritoneal Dialysis Past Surgical History: Reports: Hx Section - x2 Physical Exam - Notes Notes: Full physical exam could not be performed due to covid 19 isolation protocols. Constitutional: Nontoxic appearance, no acute distress Eyes: Nonicteric, extraocular movements intact, sclera clear ENT: Posterior pharynx clear without exudates Cardiovascular: Heart rate and rhythm regular, no JVD Respiratory: Breath sounds clear bilaterally, nonlabored breathing, no use of accessory muscles, no tachypnea Gastrointestinal: Abdomen not distended Muculoskeletal: Moves all extremities well Skin: Normal color Neuro: Awake alert oriented, normal speech Psych: Normal mood and affect Diagnostic Results Laboratory Results: The patient was evaluated during the global Covid 19 pandemic, and that diagnosis was suspected/considered upon their initial presentation. Their evaluation, treatment and testing was consistent with current guidelines for patients who present with complaints or symptoms that may be related to Covid 19. Patient presents with upper respiratory symptoms worrisome for possible Covid 19. Patient does not have emergency worrying symptoms such as difficulty breathing, shortness of breath, chest pain, pressure, confusion or cyanosis. Patient appears suitable for discharge as they are not of an advanced age, do not have any chronic medical conditions such as diabetes, CAD, immune deficiency, chronic lung disease or chronic kidney disease. Patient's vital signs are stable and patient is nontoxic in appearance. Good return precautions have been discussed with patient, patient verbalized understanding and is agreeable with discharge plan of care at this time. Patient Education/Counseling Counseling/Education: Patient was provided with discharge information including: As a person under investigation for Covid 19, the [facility] of Health and Human Services, division of public health advises you to adhere to the following guidance until your test results are reported to you. If your test result is positive, you will receive additional information from your provider and your local health department at that time. Remain at home until you are cleared by the health provider or public health authorities. Keep a log of visitors to your home, notify any visitors to your home of your isolation status. If you plan to move to a new address or leave the [facility], notify the local health department in your County. Call your doctor or seek care if you have an urgent medical need. Before seeking medical care, call ahead to get instructions from the provider before arriving at the medical office clinic or hospital. Notify them that you are being tested for the virus that causes Covid 19 so that arrangements can be made, as necessary, to prevent transmission to others in the healthcare setting. Next, notify the local health department in your county. If a medical emergency arises and you need to call 911, inform the first responders that you are being tested for the virus that causes Covid 19. Next, notify the local health department in your county. [facility] Discharge - Discharge Clinical Impression: Encounter for screening laboratory testing for COVID-19 virus
[2020-04-21 14:52] VITALS: BP 133/81
== END ==
LOC: RDC 13:44
PROVIDERS: ATTEND Nurse Practitioner Family
DX: Z20.828 Contact with and (suspected) exposure to other viral communicable diseases (principal); F17.200 Nicotine dependence, unspecified, uncomplicated
CPT/HCPCS: 87635; C9803; 99201; 99211

== ENCOUNTER 2020-07-17 07:49 | Emergency (ER) | payer MEDICAID ==
[2020-07-17 09:15] LABS: APPEARANCE,URINE CLEAR; BILIRUBIN,URINE NEGATIVE (NEGATIVE); COLOR,URINE STRAW; GLUCOSE, URINE NEGATIVE (NEGATIVE); KETONES,URINE NEGATIVE (NEGATIVE); LEUKOCYTE ESTERASE,URINE MODERATE (NEGATIVE); NITRITE,URINE NEGATIVE (NEGATIVE); PROTEIN,URINE NEGATIVE (NEGATIVE); URINE SPECIFIC GRAVITY 1.003; UROBILINOGEN,URINE NEGATIVE mg/dL (<2.0)
[2020-07-17] MEDS ORDERED: CEFTRIAXONE INJ 250 MG VIAL IM ONE ×2 (10:53→11:02)
--- NOTE | 2020-07-17 10:57 | ER Document Report ---
ED General - General Chief Complaint: Urinary Problem Stated Complaint: URINARY ISSUE Time Seen by Provider: 07/17/20 09:08 Mode of Arrival: Ambulatory Information source: Patient TRAVEL OUTSIDE OF THE [place] IN LAST 30 DAYS: No - HPI Notes: Patient presents complaining of pain with urination as well as a odor from urination. She denies any type of vaginal discharge or odor from the vaginal area. She states that she is not concerned about sexually transmitted disease. She has had no fevers. No abdominal pain or vomiting. Her pain is been mild. It is a burning sensation. It is worse with urination and better without. No significant radiation of this pain. - Related Data Allergies/Adverse Reactions: No Known Allergies Allergy (Verified 07/17/20 09:47) Past Medical History - General Information source: Patient - Social History Smoking Status: Current Every Day Smoker Frequency of alcohol use: None Drug Abuse: None Family History: Reviewed & Not Pertinent Renal/ Medical History: Denies: Hx Peritoneal Dialysis Past Surgical History: Reports: Hx Section - x3 - Immunizations Immunizations up to date: Yes Hx Diphtheria, Pertussis, Tetanus Vaccination: Yes - 09/27/13 Review of Systems - Review of Systems Constitutional: denies: Chills, Fever Cardiovascular: denies: Chest pain, Palpitations Respiratory: denies: Cough, Short of breath -: Yes All other systems reviewed and negative Physical Exam - Vital signs Vitals: Temp Pulse Resp BP Pulse Ox 99.3 F 106 H 16 121/65 100 07/17/20 07:53 07/17/20 07:53 07/17/20 07:53 07/17/20 07:53 07/17/20 07:53 Interpretation: Normal - General General appearance: Appears well, Alert - HEENT Head: Normocephalic, Atraumatic Eyes: Normal Pupils: PERRL - Respiratory Respiratory status: No respiratory distress Chest status: Nontender Breath sounds: Normal Chest palpation: Normal - Cardiovascular Rhythm: Regular Heart sounds: Normal auscultation Murmur: No - Abdominal Inspection: Normal Distension: No distension Bowel sounds: Normal Tenderness: Nontender Organomegaly: No organomegaly - Back Back: Normal, Nontender - Extremities General upper extremity: Normal inspection, Nontender, Normal color, Normal ROM, Normal temperature General lower extremity: Normal inspection, Nontender, Normal color, Normal ROM, Normal temperature, Normal weight bearing. No: Alexander's sign - Neurological Neuro grossly intact: Yes Cognition: Normal Orientation: AAOx4 Eloisa Coma Scale Eye Opening: Spontaneous [place]isa Coma Scale Verbal: Oriented [place] Coma Scale Motor: Obeys Commands [place] Coma Scale Total: 15 Speech: Normal Motor strength normal: LUE, RUE, LLE, RLE Sensory: Normal - Psychological Associated symptoms: Normal affect, Normal mood - Skin Skin Temperature: Warm Skin Moisture: Dry Skin Color: Normal Course - Vital Signs Vital signs: Temp Pulse Resp BP Pulse Ox 99.3 F 106 H 16 121/65 100 07/17/20 07:53 07/17/20 07:53 07/17/20 07:53 07/17/20 07:53 07/17/20 07:53 - Laboratory Laboratory results interpreted by me: 07/17/20 08:38 Urine Blood SMALL H Ur Leukocyte Esterase MODERATE H - EKG Interpretation by Ar EKG shows normal: Sinus rhythm Rate: Normal - 96 Rhythm: NSR [place]/QRS: No: Right axis deviation, Left axis deviation Discharge - Discharge Clinical Impression: UTI (urinary tract infection) Qualifiers: Urinary tract infection type: acute cystitis Hematuria presence: without hematuria Qualified Code(s): N30.00 - Acute cystitis without hematuria Condition: Stable Disposition: HOME, SELF-CARE Instructions: Urinary Tract Infection ([facility]) Prescriptions: Doxycycline Hyclate [Vibramycin 100 mg Tablet] 100 mg PO BID 7 Days #14 tablet Referrals: [facility] [Provider Group] - Follow up in 1 week
[2020-07-17] MEDS ORDERED: LIDOCAINE 1% INJ-PF (10 MG/ML) 30 ML SDV IM ONE (11:02)
[2020-07-17 11:22] VITALS: BP 118/70
--- NOTE | 2020-07-17 12:47 | EKG REPORT ---
SEVERITY:- NORMAL ECG - SINUS RHYTHM : Confirmed by: Nancy Mckinney MD 17-Jul-2020 12:46:51
== END 2020-07-17 11:32 | disposition home or self-care (01) ==
LOC: ER 07:49
DX: N30.00 Acute cystitis without hematuria (principal); F17.200 Nicotine dependence, unspecified, uncomplicated
CPT/HCPCS: 93005; 99284; 96372; 81025; 81001; 93010; J3490; J0696

== ENCOUNTER 2020-08-03 00:57 | Emergency (ER) | payer OTHER, MEDICAID ==
[2020-08-03 01:05] VITALS: BP 132/64
--- NOTE | 2020-08-03 01:50 | ER Document Report ---
ED General - General Chief Complaint: Dizziness Stated Complaint: DIZZY HEAD PRESSURE Time Seen by Provider: 08/03/20 01:34 Mode of Arrival: Ambulatory Information source: Patient Notes: She is a 25-year-old -[place] female coming in today for head pain. She states that at her work there are glass partitions that are supposed to protect the employees from their coworkers from getting coronavirus. She states on a number of occasions that she has bumped the back of her head on these partitions. Now she is having occurrences of headaches and lightheadedness intermittently. She has not lost consciousness. Not vomiting. She is not on blood thinners. She was told if she comes to the hospital to be evaluated that she has to be tested for coronavirus. She has no symptoms of coronavirus. TRAVEL OUTSIDE OF THE [place] IN LAST 30 DAYS: No - Related Data Allergies/Adverse Reactions: No Known Allergies Allergy (Verified 07/17/20 09:47) Past Medical History - Social History Smoking Status: Unknown if Ever Smoked Family History: Reviewed & Not Pertinent Renal/ Medical History: Denies: Hx Peritoneal Dialysis Past Surgical History: Reports: Hx Section - x3 - Immunizations Immunizations up to date: Yes Hx Diphtheria, Pertussis, Tetanus Vaccination: Yes - 09/27/13 Review of Systems - Review of Systems Notes: Constitutional: No fevers. No chills. EENT: No eye redness. No eye pain. No ear pain. No sore throat. Cardiovascular: No chest pain. No palpitations. Respiratory: No cough. No shortness of breath. No respiratory distress. Gastrointestinal: No abdominal pain. No nausea, vomiting, or diarrhea. Genitourinary: Atraumatic. No lesions. No pain. No discharge. Musculoskeletal: Atraumatic. No swelling. No deformities. Skin: No rash or lesions. Lymphatic: No swollen lymph nodes. Neurologic: Positive headache Psychiatric: No suicidal or homicidal ideation. Physical Exam - Vital signs Vitals: Temp Pulse Resp BP Pulse Ox 98.8 F 95 20 132/64 H 100 08/03/20 01:04 08/03/20 01:04 08/03/20 01:04 08/03/20 01:04 08/03/20 01:04 - Notes Notes: General: Well-developed, well-nourished. In no acute distress. Non-toxic appearing. Cardiac: Well-perfused. Regular rate and rhythm. No murmurs, rubs, or gallops. Pulmonary: No respiratory distress. No cyanosis. Bilateral lung fiels are clear to auscultation. Abdominal: Non-distended. Non-rigid. Bowels sounds are present in all four quadrants. No guarding or rebound. HEENT: Head is atraumatic. Conjunctivae not reddened. No tearing. PERRL. EOMI. Orbits atraumatic. No periorbital swelling or erythema. Oropharynx is without erythema, swelling, or exudates. Occipital head is examined. No signs of trauma. No bony step-off. No swelling. No bruising. Slight tenderness to the left occipital region. Neck: Supple. No adenopathy. No meningismus. Dermatologic: Warm with good turgor. No rash. Atraumatic. Chest: Atraumatic. No chest wall tenderness to palpation. Musculoskeletal: Moves all extremities well. No range of motion deficits. no muscular or joint tenderness. No paraspinal muscle tenderness. no midline spinal tenderness or step-off. Genitourinary: Examination deferred Neurologic: No gross neurologic deficits. Psychiatric: Normal mood. Course - Re-evaluation Re-evalutation: 08/03/20 01:47 Patient definitely does not need CT scanning at this point. She does not have a significant enough trauma to warrant the risks of exposing her to the radiation of the CT scan. Explained this to her. She seems amenable to treating this symptomatically for couple of days. We will put her on a prescription naproxen. If her head continues to bother her or if she continues to have any blurry vision or other neuro symptoms, she can follow-up with her Workmen's Comp. doctor. - Vital Signs Vital signs: Temp Pulse Resp BP Pulse Ox 98.8 F 95 20 132/64 H 100 08/03/20 01:04 08/03/20 01:04 08/03/20 01:04 08/03/20 01:04 08/03/20 01:04 Discharge - Discharge Clinical Impression: Encounter for laboratory testing for COVID-19 virus Head injury Qualifiers: Encounter type: initial encounter Qualified Code(s): S09.90XA - Unspecified injury of head, initial encounter Condition: Good Disposition: HOME, SELF-CARE Instructions: Head Injury Precautions ([facility]), COVID-19 Guidance for Persons Under Investigation Additional Instructions: If you continue to have problems with headache, dizziness, blurry vision please contact your employer and follow-up with the Workmen's Comp. doctor. If you have any problems or get significantly worse you may return to the emergency department. Forms: Return to Work
== END 2020-08-03 02:04 | disposition home or self-care (01) ==
LOC: ER 00:57
DX: S09.90XA Unspecified injury of head, initial encounter (principal); W22.8XXA Striking against or struck by other objects, initial encounter; Y99.0 Civilian activity done for income or pay; R42 Dizziness and giddiness; Z20.828 Contact with and (suspected) exposure to other viral communicable diseases
CPT/HCPCS: 99283; 87635; C9803

== ENCOUNTER 2020-11-01 16:21 | Emergency (ER) | payer MEDICAID, OTHER ==
--- NOTE | 2020-11-01 17:53 | ER Document Report ---
ED Medical Screen (RME) - General Chief Complaint: Chest Pain Stated Complaint: CHEST PAIN, URINATION PROBLEM Time Seen by Provider: 11/01/20 17:41 Notes: Patient is a 25-year-old female presents emergency department with a chief complaint of chest pain. Patient reports over the past month she has had midsternal chest pain that is worse when she lays flat. Patient states she does not have any medical problems and does not take any medications on a daily basis. Patient reports this pain has been constant over the past month with some shortness of breath. Patient states that she also has chronic UTIs and would like to be checked TRAVEL OUTSIDE OF THE [place] IN LAST 30 DAYS: No - Related Data Allergies/Adverse Reactions: No Known Allergies Allergy (Verified 11/01/20 17:40) Past Medical History - Social History Chew tobacco use (# tins/day): No Frequency of alcohol use: None Drug Abuse: None Renal/ Medical History: Denies: Hx Peritoneal Dialysis Past Surgical History: Reports: Hx Section - x3 - Immunizations Immunizations up to date: Yes Hx Diphtheria, Pertussis, Tetanus Vaccination: Yes - 09/27/13 Physical Exam - Vital signs Vitals: Temp Pulse Resp BP Pulse Ox 99.3 F 115 H 16 142/85 H 100 11/01/20 16:25 11/01/20 16:25 11/01/20 16:25 11/01/20 16:25 11/01/20 16:25 Interpretation: Tachycardic - Respiratory Respiratory status: No respiratory distress Chest status: Nontender Breath sounds: Normal Chest palpation: Normal - Cardiovascular Rhythm: Regular Heart sounds: Normal auscultation, S1 appreciated, S2 appreciated Course - Re-evaluation Re-evalutation: 11/01/20 17:52 We will obtain basic labs, troponin, chest x-ray. I have greeted and performed a rapid initial assessment of this patient. A comprehensive ED assessment and evaluation of the patient, analysis of test results and completion of the medical decision making process will be conducted by additional ED providers. - Vital Signs Vital signs: Temp Pulse Resp BP Pulse Ox 99.3 F 115 H 16 142/85 H 100 11/01/20 16:25 11/01/20 16:25 11/01/20 16:25 11/01/20 16:25 11/01/20 16:25
--- NOTE | 2020-11-01 18:23 | RADIOLOGY REPORT (SQ) ---
EXAM DESCRIPTION: CHEST 2 VIEWS IMAGES COMPLETED DATE/TIME: 11/01/2020 5:01 pm REASON FOR STUDY: chest pain COMPARISON: 12/23/2019 EXAM PARAMETERS: NUMBER OF VIEWS: two views TECHNIQUE: Digital Frontal and Lateral radiographic views of the chest acquired. RADIATION DOSE: NA LIMITATIONS: none FINDINGS: LUNGS AND PLEURA: No opacities, masses or pneumothorax. No pleural effusion. MEDIASTINUM AND HILAR STRUCTURES: No masses or contour abnormalities. HEART AND VASCULAR STRUCTURES: Heart normal size. No evidence for failure. BONES: No acute findings. HARDWARE: None in the chest. OTHER: No other significant finding. IMPRESSION: NO ACUTE RADIOGRAPHIC FINDING IN THE CHEST. TECHNICAL DOCUMENTATION: JOB ID: [id number] 2010 [employer]- All Rights Reserved Reading location - IP/workstation name: [email or web address]
--- OUTSIDE RECORDS SUMMARY | 2020-11-01 18:23 | XMS REPORT ---
:1995 Author Organization [facility] Address [address] [address] Care Team Providers Name Role Phone PCP, PER PATIENT Primary Care Physician Unavailable Allergies, Adverse Reactions, Alerts This patient has no known allergies or adverse reactions. Medications This patient has no known medications. Problems This patient has no known problems. Procedures This patient has no known procedures. Results Test Description Test Time Test Comments Text Results Atomic Results Result Comments SARS-CoV-2 RNA Resp Ql KEYANNA+probe 2020-08-04 00:00:00 Test Item Value Reference Range Comments SARS-CoV-2 RNA Resp Ql KEYANNA+probe Not detected [facility] Case ID: (test code = 36097-9) [id number] SARS-CoV-2 RNA Resp Ql KEYANNA+[id number] 00:00:00 Test Item Value Reference Range Comments SARS-CoV-2 RNA Resp Ql Not detected [facility] Case KEYANNA+probe (test code = ID: [id number] [id number]) [facility] PCR URINE INHOUSE\S\[id number] 11:37:00 Test Item Value Reference Range Comments MEGHAN PCR (test code = GONPCR) NOT DETECTED NOT DETECT CHLAM PCR (test code = CHLAMPCR) NOT DETECTED NOT DETECT Urine \S\2018-10-20 11:05:00 Test Item Value Reference Range Comments Urine (test code = URINEPREG) negative N/A URINE CULTURE, ROUTINE Test Item Value Reference Range Comments URINE CULTURE, ROUTINE (test FINAL FIN AL REPORT code = 630-4) RESULT 1 (test code = 630-48) KLEBPN KL EBSIELLA [id number] -100,000 COLONY FORMING UNITS PE R MLCEFAZOLIN <=4 UG/MLCEFAZOL IN WITH AN NATALYA <=16 PREDICTS NUNEZ SCEPTIBILITY TO THE ORAL AGENTSC EFACLOR, CEFDINIR, CEFPOD OXIME, CEFPROZIL, CEFUR OXIME, CEPHALEXIN,AND L ORACARBEF WHEN USED FOR THERAPY OF UNCOMPLICATED UR INARY TRACTINFECTIONS DUE TO E. COLI, KLEBSIELLA PNEUM ONIAE, AND PROTEUSMIRABILIS . ANTIMICROBIAL SUSCEPTIBILITY MIHEAD S = SUSCEPTIBLE; I = (test code = 25975-7) INTERMEDIA TE; R = RESISTANT P = POSITIVE; N = NEGATIVEMICS ARE EXPRESSED IN MICROGRAMS PER MLANTIBIOTIC RSLT#1 RSLT#2 RSLT#3 RSLT#4 Encounters Start End Encounter Admission Attending Care Care Encounter Date/Time Date/Time Type Type Clinicians Facility Department ID 2015-04-17 2015-04-17 Outpatient [facility] [id number] 15:28:55 23:59:00 [id number] Payers Payer Name Policy Type Policy Number Effective Date Expiration D ate MEDICAID [place] [id number] 2015 00:00:00 Social History This patient has no known social history. Vital Signs This patient has no known vital signs.
[2020-11-01 18:34] LABS: APPEARANCE,URINE SLIGHTLY-CLOUDY; BILIRUBIN,URINE NEGATIVE (NEGATIVE); COLOR,URINE YELLOW; GLUCOSE, URINE NEGATIVE (NEGATIVE); KETONES,URINE NEGATIVE (NEGATIVE); LEUKOCYTE ESTERASE,URINE TRACE (NEGATIVE); NITRITE,URINE NEGATIVE (NEGATIVE); PROTEIN,URINE NEGATIVE (NEGATIVE); URINE SPECIFIC GRAVITY 1.021; UROBILINOGEN,URINE NEGATIVE mg/dL (<2.0)
--- NOTE | 2020-11-01 19:18 | EKG REPORT ---
SEVERITY:- ABNORMAL ECG - SINUS TACHYCARDIA NONSPECIFIC T ABNORMALITIES, INFERIOR LEADS : Confirmed by: Osiel Ellis MD 01-Nov-2020 19:17:28
[2020-11-01 19:33] LABS: ABSOLUTE LYMPHOCYTES (AUTO) 2.8 10^3/uL (0.5-4.7); ABSOLUTE MONOCYTES (AUTO) 0.3 10^3/uL (0.1-1.4); ABSOLUTE NEUT (AUTO) 4.1 10^3/uL (1.7-8.2); BASOPHILS % (AUTO) 0.5 % (0-2); EOSINOPHILS % (AUTO) 0.5 % (0-6); HEMATOCRIT 39.1 % (36.0-47.0); HEMOGLOBIN 13.5 g/dL (12.0-15.5); LYMPHOCYTES % (AUTO) 38.5 % (13-45); MEAN CORPUSCULAR HEMOGLOBIN 31.3 pg (27.0-33.4); MEAN CORPUSCULAR HGB CONC 34.6 g/dL (32.0-36.0); MEAN CORPUSCULAR VOLUME 91 fl (80-97); MONOCYTES % (AUTO) 4.4 % (3-13); PLATELET COUNT 229 10^3/uL (150-450); RED BLOOD COUNT 4.32 10^6/uL (3.72-5.28); RED CELL DISTRIBUTION WIDTH 12.9 % (11.5-14.0); SEGMENTED NEUTROPHILS % (AUTO) 56.1 % (42-78); TOTAL CELLS COUNTED % (AUTO) 100 %; WHITE BLOOD COUNT 7.3 10^3/uL (4.0-10.5)
[2020-11-01 19:54] LABS: ALBUMIN 4.5 g/dL (3.5-5.0); ALKALINE PHOSPHATASE 60 U/L (38-126); ANION GAP 10 (5-19); ASPARTATE AMINO TRANSFERASE 20 U/L (14-36); BILIRUBIN,DIRECT 0.2 mg/dL (0.0-0.4); BILIRUBIN,TOTAL 0.4 mg/dL (0.2-1.3); BLOOD UREA NITROGEN 10 mg/dL (7-20); CALCIUM 9.9 mg/dL (8.4-10.2); CARBON DIOXIDE 24 mmol/L (22-30); CHLORIDE 108 mmol/L (98-107); GLUCOSE 86 mg/dL (75-110); POTASSIUM 3.8 mmol/L (3.6-5.0); TOTAL PROTEIN 8.1 g/dL (6.3-8.2)
--- NOTE | 2020-11-01 21:31 | ER Document Report ---
ED General - General Chief Complaint: Chest Pain Stated Complaint: CHEST PAIN, URINATION PROBLEM Time Seen by Provider: 11/01/20 17:41 Primary Care Provider: EBENEZER SAL MD [Primary Care Provider] - Follow up as needed Notes: Patient is a 25-year-old female comes emergency department for chief complaint of pain from the top of her abdomen up into her throat through her chest. She states that symptoms are much worse when she lies down. She also states that when she eats the pain worsens. She states that this has been worsening over the past month. She states when the pain is bad occasionally makes her feel short of breath. However she denies any current symptoms. She denies fever/chills, vomiting, flank pain, abdominal pain. She smokes, denies frequent alcohol, states she is cut back on caffeine a lot, denies recreational drugs. She has had C-sections but denies medical history otherwise. She has never had an endoscopy. She denies personal or family history of cardiac disease or blood clots. TRAVEL OUTSIDE OF THE [place] IN LAST 30 DAYS: No - Related Data Allergies/Adverse Reactions: No Known Allergies Allergy (Verified 11/01/20 17:40) Past Medical History - General Information source: Patient - Social History Smoking Status: Current Every Day Smoker Chew tobacco use (# tins/day): No Smoking Education Provided: Yes - <3 min Frequency of alcohol use: None Drug Abuse: None Lives with: Family Family History: Reviewed & Not Pertinent Patient has homicidal ideation: No Renal/ Medical History: Denies: Hx Peritoneal Dialysis Past Surgical History: Reports: Hx Section - x3 - Immunizations Immunizations up to date: Yes Hx Diphtheria, Pertussis, Tetanus Vaccination: Yes - 09/27/13 Review of Systems - Review of Systems Constitutional: No symptoms reported EENT: No symptoms reported Cardiovascular: See HPI Respiratory: See HPI Gastrointestinal: See HPI Genitourinary: No symptoms reported Female Genitourinary: No symptoms reported Musculoskeletal: No symptoms reported Skin: No symptoms reported Hematologic/Lymphatic: No symptoms reported Neurological/Psychological: No symptoms reported Physical Exam - Vital signs Vitals: Temp Pulse Resp BP Pulse Ox 99.3 F 115 H 16 142/85 H 100 11/01/20 16:25 11/01/20 16:25 11/01/20 16:25 11/01/20 16:25 11/01/20 16:25 - Notes Notes: GENERAL: Alert, interacts well. No acute distress. HEAD: Normocephalic, atraumatic. EYES: Pupils equal, round, and reactive to light. Extraocular movements intact. ENT: Oral mucosa moist, tongue midline. Oropharynx unremarkable. Airway patent. NECK: Full range of motion. Supple. Trachea midline. No lymphadenopathy. LUNGS: Clear to auscultation bilaterally, no wheezes, rales, or rhonchi. No respiratory distress. Non-tender chest wall. HEART: Regular rate and rhythm. No murmur ABDOMEN: Soft, non-tender. Non-distended. Bowel sounds present in all 4 quadrants. GENITOURINARY: Deferred EXTREMITIES: Moves all 4 extremities spontaneously. No edema, normal radial and dorsalis pedis pulses bilaterally. No cyanosis. BACK: no cervical, thoracic, lumbar midline tenderness. No saddle anesthesia, normal distal neurovascular exam. Moves all extremities in full range of motion. NEUROLOGICAL: Alert and oriented x3. Normal speech. Cranial nerves II through XII grossly intact. Strength 5/5 in all extremities. PSYCH: Normal affect, normal mood. SKIN: Warm, dry, normal turgor. No rashes or lesions noted. Course - Re-evaluation Re-evalutation: Initial heart rate recorded as tachycardic but the patient is not tachycardic on my exam or repeat testing without intervention. Symptoms have been present for almost a month intermittently with reflux symptoms and worsening symptoms with lying down and intermittently with eating. EKG unremarkable, chest x-ray unremarkable, troponin reviewed and unremarkable, negative, patient is not on oral contraceptive, does not smoke, no recent travel or surgery, PERC score is 0. Very low suspicion of acute intrathoracic etiology. I also do not suspect acute abdomen or GI bleed based on her reported symptoms of soft abdomen without any current complaints. I discussed treatment of suspected gastrointestinal symptoms, discussed follow-up and return precautions. Patient states understanding and agreement. - Vital Signs Vital signs: Temp Pulse Resp BP Pulse Ox 98.4 F 94 16 132/74 H 99 11/01/20 22:04 11/01/20 22:04 11/01/20 22:04 11/01/20 22:04 11/01/20 22:04 - Laboratory Results Result Diagrams: 11/01/20 19:10 11/01/20 19:10 Laboratory Results Interpreted: 11/01/20 11/01/20 18:13 19:10 Chloride 108 H Ur Leukocyte Esterase TRACE H Critical Laboratory Results Reviewed: No Critical Results - Radiology Results Critical Radiology Results Reviewed: No Critical Results - EKG Interpretation by Me Additional EKG results interpreted by me: EKG shows sinus tachycardia at a rate of 111, QTc 424, NE interval 132. Normal axis. Borderline T wave inversion in lead III but no T wave inversions or ST segment changes in consecutive leads. Discharge - Discharge Clinical Impression: Chest pain Qualifiers: Chest pain type: unspecified Qualified Code(s): R07.9 - Chest pain, unspecified Condition: Stable Disposition: HOME, SELF-CARE Additional Instructions: Your work-up in regards to your heart and lungs do not show any concerning findings. Based on your exam, work-up, and symptoms I believe that you have gastritis/esophagitis (inflammation of your upper gastrointestinal tract). Take Phenergan for nausea, take Carafate and Pepcid as prescribed to treat/heal this, you can take additional Rolaids, Tums, Maalox, etc. if needed. You can take Tylenol for pain. Avoid NSAIDs, alcohol, smoking, caffeine, spicy food. Start with clear fluids, progress to bland diet. Follow-up with primary care for additional evaluation and treatment including possible H. pylori testing. Return if you worsen including uncontrolled vomiting, vomiting blood, black stools, severe pain, fever of 100.4 or greater, or any other concerning or worsening symptoms. Prescriptions: Sucralfate [Carafate 1 gm Tablet] 1 gm PO QID #20 tablet Famotidine [Pepcid 20 mg Tablet] 20 mg PO BID #20 tablet Promethazine HCl [Phenergan 25 mg Tablet] 25 mg PO Q6H PRN #15 tablet PRN Reason: Forms: Return to Work Referrals: EBENEZER SAL MD [Primary Care Provider] - Follow up as needed
[2020-11-01] MEDS ORDERED: FAMOTIDINE 20 MG TABLET PO ONE (21:38)
[2020-11-01] MEDS ORDERED: SUCRALFATE 1 GM TABLET PO ONE (21:38)
[2020-11-01 22:05] VITALS: BP 132/74
== END 2020-11-01 22:04 | disposition home or self-care (01) ==
LOC: ER 16:21
DX: R07.9 Chest pain, unspecified (principal); R10.10 Upper abdominal pain, unspecified; F17.200 Nicotine dependence, unspecified, uncomplicated; Z87.440 Personal history of urinary (tract) infections
CPT/HCPCS: 93005; 99285; 36415; 87086; 85025; 81025; 80053; 81001; 84484; 71046; 93010; J3490 ×2